=== PATIENT | female | born 1940 | race Caucasian/White ===

== ENCOUNTER → 2017-08-31 17:29 | Outpatient (CLI) | payer MEDICARE, SELFPAY ==
[2017-09-08 10:52] LABS: HPV APTIMA, High Risk Negative (Negative)
== END ==
PROVIDERS: Family Provider Family Medicine; PCP Family Medicine; Visit Provider Obstetrics & Gynecology
DX: Z12.4 Encounter for screening for malignant neoplasm of cervix (principal)
CPT/HCPCS: 88175; G0145

== ENCOUNTER → 2017-10-13 08:06 | Outpatient (CLI) | payer MEDICARE, SELFPAY ==
--- NOTE | 2017-10-13 08:08 | BI_ITS ---
MAMMOGRAPHY - BILATERAL SCREENING REASON FOR EXAM: Female, 77 years old. Routine annual screening examination. PERTINENT HISTORY: Non-contributory. TECHNIQUE: Digital bilateral breast geovanna (3D mammographic acquisition) in the CC and MLO projections. 2-D mediolateral oblique (MLO) and craniocaudad (CC) views of both breasts were obtained. CAD: Full Field Digital Mammography with Computer Added Detection was performed. COMPARISON: Comparison is made with prior abdomen examination dated September 02, 2016. FINDINGS: Breast Composition: The breasts are almost entirely fatty. There are no dominant masses or suspicious calcifications. No other significant abnormalities are identified. There has been no significant change since the prior study. BI/SCREENING MAMM (CAD), BILAT IMPRESSION: Stable bilateral screening mammogram. Yearly follow-up mammogram recommended. (A) ASSESSMENT CATEGORY: BIRADS Category 1: Negative. A letter regarding these results will be sent to the patient by the facility within 30 days. Approximately 10% of breast cancers are not detected by mammography. A normal mammogram should not delay biopsy of a clinically suspicious abnormality. [id number] Electronically Signed: Priyank Lindsay MD at 11:24 EDT Tel [phone], Service support ,
== END ==
PROVIDERS: Family Provider Family Medicine; PCP Family Medicine; Visit Provider Obstetrics & Gynecology
DX: Z12.31 Encounter for screening mammogram for malignant neoplasm of breast (principal)
CPT/HCPCS: 77063; 77067

== ENCOUNTER → 2018-03-23 10:38 | Outpatient (CLI) | payer MEDICARE, SELFPAY ==
[2017-08-31 09:29] VITALS: BMI 32.8
[2018-03-23 11:42] LABS: Estradiol < 11.0 pg/mL; Follicle Stimulating Hormone 85.9 mIU/mL
[2018-03-27 11:34] LABS: Testosterone Free 2.5 pg/mL (0.0-4.2)
--- OUTSIDE RECORDS SUMMARY | 2018-05-09 05:37 | XMS RPT_ITS ---
:1940 Author Organization OHIP Care Team Providers Name Role Phone PARRISH, LEÓN Referring Unavailable MISBAH TOMAS ([facility]) Referring Unavailable BETTIE CARLSON R Referring Unavailable PARRISH, LEÓN Referring Unavailable MISBAH TOMAS ([facility]) Referring Unavailable PARRISH, LEÓN Attending Unavailable PARRISH, LEÓN Referring Unavailable PARRISH, LEÓN Referring Unavailable MISBAH TOMAS ([facility]) Referring Unavailable BETTIE CARLSON R Attending Unavailable MISBAH TOMAS ([facility]) Referring Unavailable PARRISH, LEÓN Referring Unavailable PARRISH, LEÓN Attending Unavailable MISBAH TOMAS ([facility]) Referring Unavailable PARRISH, LEÓN Referring Unavailable PARRISH, LEÓN Referring Unavailable BETTIE CARLSON R Referring Unavailable PARRISH, LEÓN Referring Unavailable Savanna Mclean Attending Unavailable Savanna Mclean Referring Unavailable Deanna Carlson Primary Care Unavailable Savanna Mclean Attending Unavailable Joaquin Whiting Referring Unavailable Savanna Mclean Attending Unavailable Savanna Mclean Referring Unavailable Deanna Carlson Primary Care Unavailable Savanna Mclean Attending Unavailable Deanna Carlson Primary Care Unavailable Cierra Fisher Attending Unavailable PROBLEMS PROBLEMS DATE TYPE CONDITION / CODE ATTENDING STATUS SOURCE 01/21/2016 Active Mixed hyperlipidemia NA Active [place] / E78.2(ICD-10) Clinic Main [place] Repository 01/21/2016 Active Hypothyroidism, NA Active [place] unspecified / Clinic Main E03.9(ICD-10) [place] Repository 09/01/2017 Unknown Z12.4 - Encounter Caridad, Active [place] for screening for [facility] malignant neoplasm Hospital of cervix / Repository Z12.4(ICD-10) 08/31/2017 Unknown Z12.31 - Encounter Caridad, Active [place] for screening [facility] mammogram for Hospital malignant neoplasm Repository of breast / Z12.31(ICD-10) 08/31/2017 Unknown Z91.89 - Other Marcanthony, Active [place] specified personal [facility] risk factors, not Hospital elsewhere classified Repository / Z91.89(ICD-10) 07/13/2016 Active Ulcerative (chronic) NA Active [place] pancolitis without Clinic Main complications / [place] K51.00(ICD-10) Repository 08/01/2017 Active Other halfway NA Active [place] (current) drug Clinic Main therapy / [place] Z79.899(ICD-10) Repository 08/01/2017 Active Encounter for NA Active [place] antibody response Clinic Main examination / [place] Z01.84(ICD-10) Repository 11/03/2015 Active Encounter for other NA Active [place] specified Clinic Main prophylactic [place] measures / Repository Z29.8(ICD-10) 05/17/2017 Active Unknown / NA Active [place] UNK(Unknown) Clinic Main [place] Repository PROCEDURES PROCEDURES No Procedure Records FoundRESULTS RESULTS LIPID PANEL, BASIC Collected: 04/10/2018 Status: F Source: [place] 7:33 AM [facility] REPOSITORY TYPE CODE TESTS RESULT OUT OF REFERENCE UNITS RANGE LAB CHOL <200 mg/dL Cholesterol High 243 Result Comment: <200 mg/dL, Desirable 200-239 mg/dL, Borderline high >239 mg/dL, High LAB TRIGLY <150 mg/dL Triglyceride 142 Result Comment: <150 mg/dL, Normal 150-199 mg/dL, Borderline high 200-499 mg/dL, High >499 mg/dL, Very high LAB HDL >39 mg/dL HDL-Cholesterol 57 Result Comment: 40-59 mg/dL, Acceptable >59 mg/dL, High: Negative risk factor for coronary heart disease <40 mg/dL, Low: Positive risk factor for coronary heart disease LAB LDL <100 mg/dL LDL-Cholesterol High 158 Result Comment: <100 mg/dL, Optimal 100-129 mg/dL, Near optimal/above optimal 130-159 mg/dL, Borderline high 160-189 mg/dL, High >189 mg/dL, Very high Secondary prevention optimal LDL Cholesterol levels are recommended to be < 70 mg/dL LAB NONHDL <130 mg/dL Non HDL High Cholesterol 186 Result Comment: <130 mg/dL, Optimal 130-159 mg/dL, Near optimal/above optimal 160-189 mg/dL, Borderline high 190-219 mg/dL, High >219 mg/dL, Very high Secondary prevention optimal non HDL Cholesterol levels are recommended to be < 100 mg/dL LAB FT hrs Fasting Time 12 LAB VLDL <30 mg/dL VLDL Cholesterol 28 LAB TCHDL <5.10 TC:HDL Ratio 4.26 LAB LDLHDL <2.54 High LDL:HDL Ratio 2.77 Result Comment: Reference: 1. National Cholesterol Education Program ATP III Guideline At-A-Glance Quick Desk Reference: National Heart, Lung, and Blood Margaret. National Institutes of Health. 2001: NIH Publication No. 01-3305. 2. An International Atherosclerosis Society position paper: global recommendations for the management of dyslipidemia: executive summary, Atherosclerosis. 2014: 232(2):410-413. Performed By: #### LIPB, TSH #### [facility] [address], [place] [address] TSH Collected: 04/10/2018 Status: F Source: [place] 7:33 AM [facility] REPOSITORY TYPE CODE TESTS RESULT OUT OF RANGE REFERENCE UNITS LAB TSH 0.400-5.500 uU/mL TSH 2.780 Performed By: #### LIPB, TSH #### [facility] [address], [place] [address] FOLLICLE STIMULATING Collected: 03/23/2018 Status: F Source: [place] 10:49 AM [facility] REPOSITORY TYPE CODE TESTS RESULT OUT OF RANGE REFERENCE UNITS LAB L3100.5125 mIU/mL Normal FSH 85.9 Result Comment: NORMAL REFERENCE RANGES FEMALE FOLLICULAR 2.3 - 12.6 mIU/mL MID-CYCLE PEAK 5.2 - 17.5 mIU/mL LUTEAL 1.7 - 12.9 mIU/mL POST-MENOPAUSAL ON MHT 5.9 - 72.8 mIU/mL NOT ON MHT 12.7 - 132.2 mlU/mL MALE 0.7 - 10.8 mIU/mL NEW TEST METHOD AND REFERENCE RANGES AUGUST 30, 2011 Performed By: #### L3100.5125, L3300.1750 #### [facility] [address] [place], [address] ESTRADIOL Collected: 03/23/2018 Status: F Source: [place] 10:49 AM [facility] REPOSITORY TYPE CODE TESTS RESULT OUT OF RANGE REFERENCE UNITS LAB L3300.1750 pg/mL Normal ESTRADIOL < 11.0 Result Comment: NORMAL REFERENCE RANGES FEMALE FOLLICULAR 21.4 - 164.8 pg/mL MID-CYCLE PEAK 49.9 - 367.2 pg/mL LUTEAL 40.2 - 259.0 pg/mL POST-MENOPAUSAL ON MHT <11.0 - 462.1 pg/mL NOT ON MHT <11.0 - 58.3 pg/mL MALE <11.0 - 52.5 pg/mL NOTE: [facility] HAS CONFIRMED THE DRUG FULVETRANT (FASLODEX) MAY CAUSE FALSELY ELEVATED ESTRADIOL RESULTS WHEN USING THIS TEST METHOD. IF PATIENT IS TAKING FULVESTRANT AN ALTERNATIVE METHOD SHOULD BE USED TO DETERMINE ESTRADIOL CONCENTRATION. Performed By: #### L3100.5125, L3300.1750 #### [facility] [address] [place], [address] TESTOSTERONE FREE Collected: 03/23/2018 Status: F Source: [place] 10:49 AM [facility] REPOSITORY TYPE CODE TESTS RESULT OUT OF RANGE REFERENCE UNITS LAB L3400.4800 0.0-4.2 pg/mL Normal TEST FR 2.5 [id number] Result Comment: Performed at: [facility] [id number] Medical Dosimetrist: Pio Dumont MD, Phone: [phone] Performed By: #### L3400.4800 #### [facility] (refer to report for specific site) refer to report for address and phone number SURGICAL PATHOLOGY Observed: 11/10/2017 Status: F Source: [place] 4:59 PM CLINIC MAIN CAMPUS REPOSITORY Specimen originated from [facility] Specimen #: [id number] Submitting Physician: LEÓN PARRISH ([id number]) FINAL DIAGNOSIS Colon, ascending, transverse, descending, sigmoid, rectum, biopsy (A-E) - Colonic mucosa with no diagnostic alteration. - No morphologic evidence of microscopic colitis. SR/paras/11/11/17 Oscar Palomo MD, Ph.D. (Electronic Signature) SPECIMEN SUBMITTED A: ASCENDING COLON, BIOPSY B: TRANSVERSE COLON, BIOPSY C: DESCENDING COLON, BIOPSY D: SIGMOID COLON, BIOPSY E: RECTAL, BIOPSY CLINICAL DATA COLITIS R/O COLITIS FOR ALL BELOW GROSS DESCRIPTION A. Received in formalin are two pieces of jacinto, soft tissue aggregating to 0.7 x 0.2 x 0.2 cm. Totally submitted in one cassette. B. Received in formalin are three pieces of jacinto, soft tissue aggregating to 1.0 x 0.4 x 0.2 cm. Totally submitted in one cassette. C. Received in formalin are two pieces of jacinto, soft tissue aggregating to 0.8 x 0.2 x 0.2 cm. Totally submitted in one cassette. D. Received in formalin are two pieces of jacinto, soft tissue aggregating to 0.8 x 0.2 x 0.2 cm. Totally submitted in one cassette. E. Received in formalin are two pieces of jacinto, soft tissue aggregating to 0.6 x 0.2 x 0.2 cm. Totally submitted in one cassette. Gross examination performed at [facility], [address] [place] [id number] 11/10/2017 11:40:49 PM Date of Report: 11/11/2017 Date of Procedure: 11/10/2017 Date of Receipt: 11/10/2017 Submitted by: LEÓN PARRISH ([id number]) Location: [facility] MAIN [facility] A3 Diagnostic interpretation performed at [facility], [address] [place] [address]. URINALYSIS WITH Collected: 10/25/2017 Status: F Source: [facility] 11:28 AM [facility] REPOSITORY TYPE CODE TESTS RESULT OUT OF RANGE REFERENCE UNITS LAB UCOL Yellow Color Yellow LAB [facility] Clear Clarity Clear LAB UGLUC Negative mg/dL Glucose, Urine Negative LAB UBIL Negative Bilirubin, Urine Negative LAB UKET Negative Ketones, Urine Negative LAB USPG 1.005-1.030 Specific [place], Ur 1.009 LAB UHGB Negative Hemoglobin/Blood, Negative Ur LAB UPH 4.5-8.0 pH 6.0 LAB UPROT Negative mg/dL Protein, Urine Negative LAB UUROB Normal Urobilinogen Normal LAB UNITR Negative Nitrites Negative LAB ULKEST Negative Leukest Abnormal 2+ Alert LAB UCOM Comments SEE COMMENT Result Comment: N/A LAB UMCOM Urine SEE Nate Comment COMMENT Result Comment: Result rechecked. LAB UWBC 0-5 /HPF WBC 0-5 LAB URBC 0-3 /HPF RBC 0-3 LAB UEPI /HPF Epithelial SEE Cells COMMENT Result Comment: Few Squamous Epithelial Cells Performed By: #### UAWMIC #### [place] [address] PROGRESS Observed: 10/17/2017 Status: COMPLETED Source: [place] 9:44 AM [facility] REPOSITORY HNO ID: [id number] Author: Bettie Carlson Service: (none) Author Type: Physician Type: Progress Notes Filed: 10/18/2017 8:15 AM Note Text: Chief Complaint Patient presents with: Follow Up: UTI HPI Isaiah Shea is a 77 year old female who presents here today for follow-up of recent UTI. she had blood in the urine and the culture was negative. Past medical history, appointments, medications, allergies reviewed. 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 - Bowel disease - Diarrhea - Diverticulosis of colon (without mention of hemorrhage) - Esophageal reflux - Hypertension - Obesity, unspecified - Other and unspecified hyperlipidemia - Other and unspecified noninfectious gastroenteritis and colitis(558.9) - Rosacea - Thyroid disorder - Ulcerative colitis (HCC) - Unspecified disorder resulting from impaired renal function Previous Surgical History PAST SURGICAL HISTORY Procedure Laterality Date - COLONOSCOP W/ OR W/O BRS SPEC 05/17/05 attempted colonoscopy BA Enema for 05-18-05 - COLONOSCOP W/ OR W/O [facility] SPEC 07/08/11 Performed by León Parrish MD - COLONOSCOPY W/BX 09/21/07 - COLONOSCOPY W/BX colitis - 70cm to rectum - COLONOSCOPY W/BX 07/03/09 colitis rectum to 40cm - EGD W/O [facility] SPECIMEN W/BX gastritis - LAP COLECTOMY W COLOPROCTOST 10/23/2007 - LIGATE FALLOPIAN TUBE Tubal ligation - PART REMOVAL COLON W END COLOSTOMY 06/28/2007 complicated diverticulitis' - PAST SURGICAL HISTORY OF neuro - REMOVAL OF TONSILS,<12 Y/O Tonsillectomy Family History FAMILY HISTORY Problem Relation Age of Onset - Heart Mother - Heart Father - Cancer Mother lung Patient Allergies ALLERGIES Allergen Reactions - Neomycin Optic drops grittiness in eyes per opthomologist - Sulfasalazine Rash Current Medications Current Outpatient Prescriptions on File Prior to Visit: triamcinolone acetonide (KENALOG) 0.1 % cream Apply 1 application to affected area twice daily. cyanocobalamin, vitamin B-12, (VITAMIN B-12 ORAL) Take by mouth once daily. mesalamine (DELZICOL) 400 mg Delayed Release Cap Take 2 capsules by mouth three times daily. Denies side effects to this medication inFLIXimab (REMICADE) 100 mg injection PREMEDICATE WITH TYLENOL 650 MG PO AND BENADRYL 25MG PO 400 mg IV every 8 wks. Most recent weight on 01-02-2017 was 87.5 kg levothyroxine (SYNTHROID) 100 mcg tablet Take 1 tablet by mouth once daily. lisinopril-hydrochlorothiazide (PRINZIDE,ZESTORETIC) 20-12.5 mg per tablet Take 1 tablet by mouth once daily. omeprazole (PRILOSEC) 20 mg capsule Take 1 capsule by mouth daily before breakfast. 1/2 hr before meal. simvastatin (ZOCOR) 20 mg tablet Take 1 tablet by mouth daily at bedtime. Blood Pressure Test Kit-Large (QUICK RESPONSE BP MONITOR) kit Check blood pressure weekly and as needed. Essential hypertension--I10. oxybutynin ER (DITROPAN XL) 10 mg 24 hr tablet TAKE 1 TABLET DAILY inFLIXimab (REMICADE) 100 mg injection PREMEDICATE WITH TYLENOL 650 MG PO AND BENADRYL 25MG PO 500mg IV every 8 wks. Infusion can be done at [facility] [place] Cholecalciferol, Vitamin D3, 2,000 unit cap Take 1 tablet by mouth once daily. multivitamins(DAILY VITAMIN TAB) Take one(1) tablet daily. ACETAMINOPHEN 500 MG TAB Take one(1) tablet every four(4) to six(6) hours as needed for pain. azelaic acid(FINACEA 15 % TOPICAL GEL) am/hs OTC NUTRITIONAL SUPPLEMENT calcium qd No current facility-administered medications on file prior to visit. Social History Social History Marital status: Spouse name: Britney Years of education: 18+ Number of children: 2 Occupational History Occupation Employer Comment retired [employer] Social History Main Topics Smoking status: Former Smoker Packs/day: 1.00 Years: 15.00 Types: Cigarettes Quit date: 12/17/1984 Smokeless tobacco: Never Used Alcohol use: Yes 3.0 oz/week Glasses of Wine (5oz): 2 per week Comment: 1-2 per week Drug use: No Sexual activity: Yes Partners with: Male control/protection: Tubal Ligation Social History Narrative [place] 3x per week. Cardio, strength. ROS: General: Feels well, no weight changes, fever, chills. HEENT: No sinus congestion, earache, sore throat. Cardiac: No chest pain, palpitations, shortness of breath Resp: No cough, wheeze. GI: No reflux symptoms, food intolerance, bowel changes. : No current urinary frequency, dysuria. MS: No pain or joint complaints. PHYSICAL EXAMINATION BP 139/53 (BP Site: Left Arm, BP Position: Sitting) Pulse 68 Resp 12 Wt 91.9 kg (202 lb 9.6 oz) BMI 32.70 kg/m? General: Alert and oriented, no distress, pleasant and cooperative. Heart: Regular, normal S1 and S2, no murmurs, rubs, or gallops Lungs: Clear to auscultation bilaterally Abdomen: Benign No CVAT Extremities: Feet/ankles without edema, posterior tibial pulses full and symmetrical Health Maintenance List ZOSTER VACCINE (SHINGRIX)(2 of 3) due on 09/30/2008 COLORECTAL CANCER SCREENING,SEE MODIFIER due on 08/18/2017 DTAP,TDAP,TD(2 - Td) due on 12/11/2017 DIABETES SCREEN due on 08/01/2020 LIPID SCREEN due on 02/17/2022 BONE DENSITY Completed ADULT PREVNAR-13 Completed PNEUMOVAX AGE 65 AND OVER WITH 5YR LOOKBACK Completed Data reviewed Last lipid and TSH February. Kidney, liver function and glucose are normal. Blood count is normal. Assessment/Plan: (R31.29) Microscopic hematuria (primary encounter diagnosis) Comment: Plan: URINALYSIS WITH MICROSCOPIC (N30.80) Bacterial cystitis Comment: culture has not been confirmatory Plan: URINALYSIS WITH MICROSCOPIC, may proceed with urology consult (E03.9) Acquired hypothyroidism Comment: stable Plan: TSH BLD Ordered for February. (E78.2) Mixed hyperlipidemia Comment: Plan: LIPID PANEL BASIC Ordered For February. She gets CMP and CBC quarterly No medications selected for refill. RTO: annual visit OK if the UA turns out alright, urol eval if persistent hematuria Bettie Carlson MD CNOV Observed: 10/17/2017 Status: COMPLETED Source: [place] 9:40 AM [facility] REPOSITORY Office Visit (FPWADS) ISAIAH SHEA ([id number]) 1940 F [place] Date Time Provider Department 10/17/17 9:40 AM BETTIE CARLSON During your visit today, we recorded the following information about you: Pulse Respiration Blood pressure Weight 68/minute 12/minute 139/53 91.9 kg Bettie Carlson MD 10/18/2017 8:15 AM Signed Chief Complaint Patient presents with: Follow Up: UTI HPI Isaiah Shea is a 77 year old female who presents here today for follow-up of recent UTI. she had blood in the urine and the culture was negative. Past medical history, appointments, medications, allergies reviewed. 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 - Bowel disease - Diarrhea - Diverticulosis of colon (without mention of hemorrhage) - Esophageal reflux - Hypertension - Obesity, unspecified - Other and unspecified hyperlipidemia - Other and unspecified noninfectious gastroenteritis and colitis(558.9) - Rosacea - Thyroid disorder - Ulcerative colitis (HCC) - Unspecified disorder resulting from impaired renal function Previous Surgical History PAST SURGICAL HISTORY Procedure Laterality Date - COLONOSCOP W/ OR W/O BRS SPEC 05/17/05 attempted colonoscopy BA Enema for 05-18-05 - COLONOSCOP W/ OR W/O [facility] SPEC 07/08/11 Performed by León Parrish MD - COLONOSCOPY W/BX 09/21/07 - COLONOSCOPY W/BX colitis - 70cm to rectum - COLONOSCOPY W/BX 07/03/09 colitis rectum to 40cm - EGD W/O [facility] SPECIMEN W/BX gastritis - LAP COLECTOMY W COLOPROCTOST 10/23/2007 - LIGATE FALLOPIAN TUBE Tubal ligation - PART REMOVAL COLON W END COLOSTOMY 06/28/2007 complicated diverticulitis' - PAST SURGICAL HISTORY OF neuro - REMOVAL OF TONSILS,<12 Y/O Tonsillectomy Family History FAMILY HISTORY Problem Relation Age of Onset - Heart Mother - Heart Father - Cancer Mother lung Patient Allergies ALLERGIES Allergen Reactions - Neomycin Optic drops grittiness in eyes per opthomologist - Sulfasalazine Rash Current Medications Current Outpatient Prescriptions on File Prior to Visit: triamcinolone acetonide (KENALOG) 0.1 % cream Apply 1 application to affected area twice daily. cyanocobalamin, vitamin B-12, (VITAMIN B-12 ORAL) Take by mouth once daily. mesalamine (DELZICOL) 400 mg Delayed Release Cap Take 2 capsules by mouth three times daily. Denies side effects to this medication inFLIXimab (REMICADE) 100 mg injection PREMEDICATE WITH TYLENOL 650 MG PO AND BENADRYL 25MG PO 400 mg IV every 8 wks. Most recent weight on 01-02-2017 was 87.5 kg levothyroxine (SYNTHROID) 100 mcg tablet Take 1 tablet by mouth once daily. lisinopril-hydrochlorothiazide (PRINZIDE,ZESTORETIC) 20-12.5 mg per tablet Take 1 tablet by mouth once daily. omeprazole (PRILOSEC) 20 mg capsule Take 1 capsule by mouth daily before breakfast. 1/2 hr before meal. simvastatin (ZOCOR) 20 mg tablet Take 1 tablet by mouth daily at bedtime. Blood Pressure Test Kit-Large (QUICK RESPONSE BP MONITOR) kit Check blood pressure weekly and as needed. Essential hypertension--I10. oxybutynin ER (DITROPAN XL) 10 mg 24 hr tablet TAKE 1 TABLET DAILY inFLIXimab (REMICADE) 100 mg injection PREMEDICATE WITH TYLENOL 650 MG PO AND BENADRYL 25MG PO 500mg IV every 8 wks. Infusion can be done at [facility] [place] Cholecalciferol, Vitamin D3, 2,000 unit cap Take 1 tablet by mouth once daily. multivitamins(DAILY VITAMIN TAB) Take one(1) tablet daily. ACETAMINOPHEN 500 MG TAB Take one(1) tablet every four(4) to six(6) hours as needed for pain. azelaic acid(FINACEA 15 % TOPICAL GEL) am/hs OTC NUTRITIONAL SUPPLEMENT calcium qd No current facility-administered medications on file prior to visit. Social History Social History Marital status: Spouse name: Britney Years of education: 18+ Number of children: 2 Occupational History Occupation Employer Comment retired [employer] Social History Main Topics Smoking status: Former Smoker Packs/day: 1.00 Years: 15.00 Types: Cigarettes Quit date: 12/17/1984 Smokeless tobacco: Never Used Alcohol use: Yes 3.0 oz/week Glasses of Wine (5oz): 2 per week Comment: 1-2 per week Drug use: No Sexual activity: Yes Partners with: Male control/protection: Tubal Ligation Social History Narrative [place] 3x per week. Cardio, strength. ROS: General: Feels well, no weight changes, fever, chills. HEENT: No sinus congestion, earache, sore throat. Cardiac: No chest pain, palpitations, shortness of breath Resp: No cough, wheeze. GI: No reflux symptoms, food intolerance, bowel changes. : No current urinary frequency, dysuria. MS: No pain or joint complaints. PHYSICAL EXAMINATION BP 139/53 (BP Site: Left Arm, BP Position: Sitting) Pulse 68 Resp 12 Wt 91.9 kg (202 lb 9.6 oz) BMI 32.70 kg/m? General: Alert and oriented, no distress, pleasant and cooperative. Heart: Regular, normal S1 and S2, no murmurs, rubs, or gallops Lungs: Clear to auscultation bilaterally Abdomen: Benign No CVAT Extremities: Feet/ankles without edema, posterior tibial pulses full and symmetrical Health Maintenance List ZOSTER VACCINE (SHINGRIX)(2 of 3) due on 09/30/2008 COLORECTAL CANCER SCREENING,SEE MODIFIER due on 08/18/2017 DTAP,TDAP,TD(2 - Td) due on 12/11/2017 DIABETES SCREEN due on 08/01/2020 LIPID SCREEN due on 02/17/2022 BONE DENSITY Completed ADULT PREVNAR-13 Completed PNEUMOVAX AGE 65 AND OVER WITH 5YR LOOKBACK Completed Data reviewed Last lipid and TSH February. Kidney, liver function and glucose are normal. Blood count is normal. Assessment/Plan: (R31.29) Microscopic hematuria (primary encounter diagnosis) Comment: Plan: URINALYSIS WITH MICROSCOPIC (N30.80) Bacterial cystitis Comment: culture has not been confirmatory Plan: URINALYSIS WITH MICROSCOPIC, may proceed with urology consult (E03.9) Acquired hypothyroidism Comment: stable Plan: TSH BLD Ordered for February. (E78.2) Mixed hyperlipidemia Comment: Plan: LIPID PANEL BASIC Ordered For February. She gets CMP and CBC quarterly No medications selected for refill. RTO: annual visit OK if the UA turns out alright, urol eval if persistent hematuria Bettie Carlson MD Referring Provider: SELF [[id number]] Allergies As of Date: 10/17/2017 Noted Allergy Reaction NEOMYCIN 12/12/2007 Comments: Optic drops grittiness in eyes per opthomologist SULFASALAZINE 01/08/2011 2 - Rash Date Reviewed: 10/17/2017 Reviewed by: Imleda Plummer Ma - Fully Assessed Reason for Visit: Follow Up [171] Cmt: UTI Primary Visit Diagnosis:Microscopic hematuria [R31.29] Other Visit Diagnoses:Bacterial cystitis [N30.80] Acquired hypothyroidism [E03.9] Mixed hyperlipidemia [E78.2] Order(s):LIPID PANEL BASIC [SQLIPB] Order #: [id number] FUTURE TSH BLD [SQTSH] Order #: [id number] FUTURE URINALYSIS WITH MICROSCOPIC [SQUAWMIC] Order #: [id number] Prescriptions as of 10/17/2017 Sig: TRIAMCINOLONE ACETONIDE 0.1 %* Apply 1 application to affect* VITAMIN B-12 ORAL Take by mouth once daily. MESALAMINE 400 MG CAPSULE,DEL* Take 2 capsules by mouth thre* INFLIXIMAB 100 MG INTRAVENOUS* PREMEDICATE WITH TYLENOL 650* LEVOTHYROXINE 100 MCG TABLET Take 1 tablet by mouth once d* LISINOPRIL 20 MG-HYDROCHLOROT* Take 1 tablet by mouth once d* OMEPRAZOLE 20 MG CAPSULE,BIANKA* Take 1 capsule by mouth daily* SIMVASTATIN 20 MG TABLET Take 1 tablet by mouth daily * BLOOD PRESSURE TEST KIT-LARGE* Check blood pressure weekly a* OXYBUTYNIN CHLORIDE ER 10 MG * TAKE 1 TABLET DAILY INFLIXIMAB 100 MG INTRAVENOUS* PREMEDICATE WITH TYLENOL 650* CHOLECALCIFEROL (VITAMIN D3) * Take 1 tablet by mouth once d* DAILY VITAMIN TABLET Take one(1) tablet daily. ACETAMINOPHEN 500 MG TABLET Take one(1) tablet every four* FINACEA 15 % TOPICAL GEL am/hs OTC NUTRITIONAL SUPPLEMENT calcium qd Problem List As Of Date 10/17/2017 Noted Resolved ROSACEA [L71.9] OBESITY NOS [E66.9] Mixed hyperlipidemia [E78.2] Priority: B BENIGN HYPERTENSION [I10] 08/03/2007 DIVERTICULOSIS OF COLON W/O BLEED [K57.30] NONHEALING SURGICAL WOUND [T81.89XA] INVALID FOR*12/12/2007 DIVERTICULITIS OF COLON W/O BLEED [K57.32] INVALID FOR*12/12/2007 More... Acquired hypothyroidism [E03.9] INVALID FOR* Priority: A Anemia, unspecified [D64.9] INVALID FOR* Priority: B DIVERTICULITIS OF COLON W/O BLEED [K57.32] INVALID FOR* Elevated blood pressure reading without diagnos*INVALID FOR*10/07/2011 Diarrhea [R19.7] INVALID FOR* Gastritis/duodenitis [K29.70, K29.90] INVALID FOR* Other and unspecified noninfectious gastroenter*INVALID FOR* Acute gastritis without mention of hemorrhage [*INVALID FOR* Unspecified disorder resulting from impaired re*INVALID FOR* Priority: A Esophageal reflux [K21.9] INVALID FOR* Priority: C Nonspecific colitis [K52.9] INVALID FOR* Priority: Moderate More... Anemia due to blood loss [D50.0] INVALID FOR* Routine gynecological examination [Z01.419] INVALID FOR* Priority: B Class: Chronic More... 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) [M07.60*INVALID FOR* Need for prophylactic immunotherapy [Z29.8] INVALID FOR* Ulcerative pancolitis without complication (HCC*INVALID FOR* Encounter Status:Closed by DEANNA CARLSON MD on 10/18/17 URINALYSIS WITH Collected: 10/13/2017 Status: F Source: [facility] 9:11 AM [facility] REPOSITORY TYPE CODE TESTS RESULT OUT OF RANGE REFERENCE UNITS LAB UCOL Yellow Color Yellow LAB [facility] Clear Clarity Abnormal Cloudy Alert LAB UGLUC Negative mg/dL Glucose, Urine Negative LAB UBIL Negative Bilirubin, Urine Negative LAB UKET Negative Ketones, Urine Negative LAB USPG 1.005-1.030 Specific [place], Ur 1.008 LAB UHGB Negative Hemoglobin/Blood, Negative Ur LAB UPH 4.5-8.0 pH 6.0 LAB UPROT Negative mg/dL Protein, Urine Negative LAB UUROB Normal Urobilinogen Normal LAB UNITR Negative Nitrites Negative LAB ULKEST Negative Leukest Abnormal Trace Alert LAB UCOM Comments SEE COMMENT Result Comment: N/A LAB UMCOM Urine SEE Nate Comment COMMENT Result Comment: N/A LAB UWBC 0-5 /HPF WBC 0-5 LAB URBC 0-3 /HPF RBC 0-3 LAB UEPI /HPF Epithelial SEE Cells COMMENT Result Comment: Few Squamous Epithelial Cells Few Non-Squamous Epithelial Cells Performed By: #### UAWMIC #### [facility] [address] [place], [place] [address] SCREENING MAMM (CAD), Observed: 10/13/2017 Status: F Source: [place] [facility] 8:08 AM [facility] REPOSITORY [facility] Imaging Services [address] [place] [address] SCREENING MAMM (CAD), BILAT MR#: [id number] Acct: [id number] Name: ISAIAH SHEA Rep #: [id number] : 1940 F 77 From: Priyank Lindsay MD PCP: Deanna Carlson MD Status: REG CLI Study: SCREENING MAMM (CAD), BILAT Date of Exam: 10/13/17 Exam# [id number] Ordering Dr: Savanna Mclean MD MAMMOGRAPHY - BILATERAL SCREENING REASON FOR EXAM: Female, 77 years old. Routine annual screening examination. PERTINENT HISTORY: Non-contributory. TECHNIQUE: Digital bilateral breast geovanna (3D mammographic acquisition) in the CC and MLO projections. 2-D mediolateral oblique (MLO) and craniocaudad (CC) views of both breasts were obtained. CAD: Full Field Digital Mammography with Computer Added Detection was performed. COMPARISON: Comparison is made with prior abdomen examination dated September 02, 2016. FINDINGS: Breast Composition: The breasts are almost entirely fatty. There are no dominant masses or suspicious calcifications. No other significant abnormalities are identified. There has been no significant change since the prior study. BI/SCREENING MAMM (CAD), BILAT IMPRESSION: Stable bilateral screening mammogram. Yearly follow-up mammogram recommended. (A) ASSESSMENT CATEGORY: BIRADS Category 1: Negative. A letter regarding these results will be sent to the patient by the facility within 30 days. Approximately 10% of breast cancers are not detected by mammography. A normal mammogram should not delay biopsy of a clinically suspicious abnormality. [id number] Electronically Signed: Priyank Lindsay MD at 11:24 EDT Tel [phone], Service support , CC: Deanna Carlson MD; Savanna Mclean MD Estimator Printing: Signed Observed: 09/07/2017 Status: F Source: [place] URINE CULTURE 10:21 AM [facility] REPOSITORY Sp. Request/Comment: - Specimen received in preservative Culture Result - <10,000 CFU/ml Normal urogenital jarrell Performed By: #### URCUL #### [facility] [address] [place], [place] [address] PROGRESS Observed: 09/07/2017 Status: COMPLETED Source: [place] 10:16 AM [facility] REPOSITORY HNO ID: [id number] Author: Forrest (Christian) Leander Service: (none) Author Type: Nurse Practitioner Type: Progress Notes Filed: 09/07/2017 10:29 AM Note Text: Subjective HPI Isaiah Shea is a 77 year old female who presents with dysuria, frequency, and urgency for the past 4 days. She has been taking prednisone for a poison rosenda rash which is resolving. She denies back pain or abdominal pain. No fever at home. Review of Systems Constitutional: Negative. Negative for chills and fever. Gastrointestinal: Negative. Negative for abdominal pain, diarrhea, nausea and vomiting. Genitourinary: Positive for dysuria, frequency and urgency. Negative for flank pain and hematuria. Musculoskeletal: Negative. Negative for back pain. BP 130/90 Pulse 62 Temp 36.7 ?C (98 ?F) (Left Tympanic) Resp 16 Wt 90.3 kg (199 lb) BMI 32.12 kg/m? 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 - Bowel disease - Diarrhea - Diverticulosis of colon (without mention of hemorrhage) - Esophageal reflux - Hypertension - Obesity, unspecified - Other and unspecified hyperlipidemia - Other and unspecified noninfectious gastroenteritis and colitis(558.9) - Rosacea - Thyroid disorder - Ulcerative colitis (HCC) - Unspecified disorder resulting from impaired renal function PAST SURGICAL HISTORY Procedure Laterality Date - COLONOSCOP W/ OR W/O BRSH SPEC 05/17/05 attempted colonoscopy BA Enema for 05-18-05 - COLONOSCOP W/ OR W/O BRSH SPEC 07/08/11 Performed by León Parrish MD - COLONOSCOPY W/BX 09/21/07 - COLONOSCOPY W/BX colitis - 70cm to rectum - COLONOSCOPY W/BX 07/03/09 colitis rectum to 40cm - EGD W/O [facility] SPECIMEN W/BX gastritis - LAP COLECTOMY W COLOPROCTOST 10/23/2007 - LIGATE FALLOPIAN TUBE Tubal ligation - PART REMOVAL COLON W END COLOSTOMY 06/28/2007 complicated diverticulitis' - PAST SURGICAL HISTORY OF neuro - REMOVAL OF TONSILS,<12 Y/O Tonsillectomy ALLERGIES Neomycin; Sulfasalazine MEDICATIONS predniSONE (DELTASONE) 10 mg tablet Take 4 tabs daily for 3 days, then 2 tabs daily for 3 days, then 1 tab daily for 3 days with food. triamcinolone acetonide (KENALOG) 0.1 % cream Apply 1 application to affected area twice daily. cyanocobalamin, vitamin B-12, (VITAMIN B-12 ORAL) Take by mouth once daily. mesalamine (DELZICOL) 400 mg Delayed Release Cap Take 2 capsules by mouth three times daily. Denies side effects to this medication inFLIXimab (REMICADE) 100 mg injection PREMEDICATE WITH TYLENOL 650 MG PO AND BENADRYL 25MG PO 400 mg IV every 8 wks. Most recent weight on 01-02-2017 was 87.5 kg levothyroxine (SYNTHROID) 100 mcg tablet Take 1 tablet by mouth once daily. lisinopril-hydrochlorothiazide (PRINZIDE,ZESTORETIC) 20-12.5 mg per tablet Take 1 tablet by mouth once daily. omeprazole (PRILOSEC) 20 mg capsule Take 1 capsule by mouth daily before breakfast. 1/2 hr before meal. simvastatin (ZOCOR) 20 mg tablet Take 1 tablet by mouth daily at bedtime. Blood Pressure Test Kit-Large (QUICK RESPONSE BP MONITOR) kit Check blood pressure weekly and as needed. Essential hypertension--I10. oxybutynin ER (DITROPAN XL) 10 mg 24 hr tablet TAKE 1 TABLET DAILY inFLIXimab (REMICADE) 100 mg injection PREMEDICATE WITH TYLENOL 650 MG PO AND BENADRYL 25MG PO 500mg IV every 8 wks. Infusion can be done at [facility] [place] Cholecalciferol, Vitamin D3, 2,000 unit cap Take 1 tablet by mouth once daily. multivitamins(DAILY VITAMIN TAB) Take one(1) tablet daily. ACETAMINOPHEN 500 MG TAB Take one(1) tablet every four(4) to six(6) hours as needed for pain. azelaic acid(FINACEA 15 % TOPICAL GEL) am/hs OTC NUTRITIONAL SUPPLEMENT calcium qd FAMILY HISTORY Problem Relation Age of Onset - Heart Mother - Heart Father - Cancer Mother lung Social History Substance Use Topics - Smoking status: Former Smoker Packs/day: 1.00 Years: 15.00 Types: Cigarettes Quit date: 12/17/1984 - Smokeless tobacco: Never Used - Alcohol use 3.0 oz/week 2 Glasses of Wine (5oz) per week Comment: 1-2 per week Objective Physical Exam Constitutional: She is well-developed, well-nourished, and in no distress. HENT: Head: Normocephalic. Eyes: Conjunctivae are normal. Right eye exhibits no discharge. Left eye exhibits no discharge. Neck: Neck supple. Cardiovascular: Normal rate, regular rhythm and normal heart sounds. Pulmonary/Chest: Effort normal and breath sounds normal. No respiratory distress. She has no wheezes. Abdominal: Soft. She exhibits no distension and no mass. There is no hepatosplenomegaly. There is no tenderness. There is no guarding and no CVA tenderness. Lymphadenopathy: She has no cervical adenopathy. Neurological: She is alert. Nursing note and vitals reviewed. ASSESSMENT/PLAN: 1. Acute cystitis with hematuria - ICD9: 595.0, ICD10: N30.01 (primary diagnosis) - CEPHALEXIN 500 MG CAPSULE 2. Dysuria - ICD9: 788.1, ICD10: R30.0 acute - UA positive for tal esterase and hematuria - Send urine for culture - Begin treatment with Keflex for 7 days - Patient education for prevention given - UA DIP B/O - URINE CULTURE - Follow-up with your PCP in 3-5 days if symptoms have not improved or sooner if symptoms worsen - Discussed red flags and need for immediate medical evaluation if any occur. - Discussed supportive care treatment with fluids, rest and analgesia. - Discussed expected course of illness Forrest Tabor APRN.SCALE CLERK CNOV Observed: 09/07/2017 Status: COMPLETED Source: [place] 10:00 AM [facility] REPOSITORY Office Visit (WSTR) ISAIAH SHEA ([id number]) 1940 F [place] Date Time Provider Department 09/07/17 10:00 AM FORREST TABOR (SCALE CLERK) [facility] During your visit today, we recorded the following information about you: Temperature Pulse Respiration Blood pressure 98 degrees 62/minute 16/minute 130/90 Weight 90.3 kg Forrest Tabor APRN.CHRISTIAN 09/07/2017 10:29 AM Signed Subjective HPI Isaiah Shea is a 77 year old female who presents with dysuria, frequency, and urgency for the past 4 days. She has been taking prednisone for a poison rosenda rash which is resolving. She denies back pain or abdominal pain. No fever at home. Review of Systems Constitutional: Negative. Negative for chills and fever. Gastrointestinal: Negative. Negative for abdominal pain, diarrhea, nausea and vomiting. Genitourinary: Positive for dysuria, frequency and urgency. Negative for flank pain and hematuria. Musculoskeletal: Negative. Negative for back pain. BP 130/90 Pulse 62 Temp 36.7 ?C (98 ?F) (Left Tympanic) Resp 16 Wt 90.3 kg (199 lb) BMI 32.12 kg/m? 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 - Bowel disease - Diarrhea - Diverticulosis of colon (without mention of hemorrhage) - Esophageal reflux - Hypertension - Obesity, unspecified - Other and unspecified hyperlipidemia - Other and unspecified noninfectious gastroenteritis and colitis(558.9) - Rosacea - Thyroid disorder - Ulcerative colitis (HCC) - Unspecified disorder resulting from impaired renal function PAST SURGICAL HISTORY Procedure Laterality Date - COLONOSCOP W/ OR W/O BRSH SPEC 05/17/05 attempted colonoscopy BA Enema for 05-18-05 - COLONOSCOP W/ OR W/O BRSH SPEC 07/08/11 Performed by León Parrish MD - COLONOSCOPY W/BX 09/21/07 - COLONOSCOPY W/BX colitis - 70cm to rectum - COLONOSCOPY W/BX 07/03/09 colitis rectum to 40cm - EGD W/O [facility] SPECIMEN W/BX gastritis - LAP COLECTOMY W COLOPROCTOST 10/23/2007 - LIGATE FALLOPIAN TUBE Tubal ligation - PART REMOVAL COLON W END COLOSTOMY 06/28/2007 complicated diverticulitis' - PAST SURGICAL HISTORY OF neuro - REMOVAL OF TONSILS,<12 Y/O Tonsillectomy ALLERGIES Neomycin; Sulfasalazine MEDICATIONS predniSONE (DELTASONE) 10 mg tablet Take 4 tabs daily for 3 days, then 2 tabs daily for 3 days, then 1 tab daily for 3 days with food. triamcinolone acetonide (KENALOG) 0.1 % cream Apply 1 application to affected area twice daily. cyanocobalamin, vitamin B-12, (VITAMIN B-12 ORAL) Take by mouth once daily. mesalamine (DELZICOL) 400 mg Delayed Release Cap Take 2 capsules by mouth three times daily. Denies side effects to this medication inFLIXimab (REMICADE) 100 mg injection PREMEDICATE WITH TYLENOL 650 MG PO AND BENADRYL 25MG PO 400 mg IV every 8 wks. Most recent weight on 01-02-2017 was 87.5 kg levothyroxine (SYNTHROID) 100 mcg tablet Take 1 tablet by mouth once daily. lisinopril-hydrochlorothiazide (PRINZIDE,ZESTORETIC) 20-12.5 mg per tablet Take 1 tablet by mouth once daily. omeprazole (PRILOSEC) 20 mg capsule Take 1 capsule by mouth daily before breakfast. 1/2 hr before meal. simvastatin (ZOCOR) 20 mg tablet Take 1 tablet by mouth daily at bedtime. Blood Pressure Test Kit-Large (QUICK RESPONSE BP MONITOR) kit Check blood pressure weekly and as needed. Essential hypertension--I10. oxybutynin ER (DITROPAN XL) 10 mg 24 hr tablet TAKE 1 TABLET DAILY inFLIXimab (REMICADE) 100 mg injection PREMEDICATE WITH TYLENOL 650 MG PO AND BENADRYL 25MG PO 500mg IV every 8 wks. Infusion can be done at [facility] [place] Cholecalciferol, Vitamin D3, 2,000 unit cap Take 1 tablet by mouth once daily. multivitamins(DAILY VITAMIN TAB) Take one(1) tablet daily. ACETAMINOPHEN 500 MG TAB Take one(1) tablet every four(4) to six(6) hours as needed for pain. azelaic acid(FINACEA 15 % TOPICAL GEL) am/hs OTC NUTRITIONAL SUPPLEMENT calcium qd FAMILY HISTORY Problem Relation Age of Onset - Heart Mother - Heart Father - Cancer Mother lung Social History Substance Use Topics - Smoking status: Former Smoker Packs/day: 1.00 Years: 15.00 Types: Cigarettes Quit date: 12/17/1984 - Smokeless tobacco: Never Used - Alcohol use 3.0 oz/week 2 Glasses of Wine (5oz) per week Comment: 1-2 per week Objective Physical Exam Constitutional: She is well-developed, well-nourished, and in no distress. HENT: Head: Normocephalic. Eyes: Conjunctivae are normal. Right eye exhibits no discharge. Left eye exhibits no discharge. Neck: Neck supple. Cardiovascular: Normal rate, regular rhythm and normal heart sounds. Pulmonary/Chest: Effort normal and breath sounds normal. No respiratory distress. She has no wheezes. Abdominal: Soft. She exhibits no distension and no mass. There is no hepatosplenomegaly. There is no tenderness. There is no guarding and no CVA tenderness. Lymphadenopathy: She has no cervical adenopathy. Neurological: She is alert. Nursing note and vitals reviewed. ASSESSMENT/PLAN: 1. Acute cystitis with hematuria - ICD9: 595.0, ICD10: N30.01 (primary diagnosis) - CEPHALEXIN 500 MG CAPSULE 2. Dysuria - ICD9: 788.1, ICD10: R30.0 acute - UA positive for tal esterase and hematuria - Send urine for culture - Begin treatment with Keflex for 7 days - Patient education for prevention given - UA DIP B/O - URINE CULTURE - Follow-up with your PCP in 3-5 days if symptoms have not improved or sooner if symptoms worsen - Discussed red flags and need for immediate medical evaluation if any occur. - Discussed supportive care treatment with fluids, rest and analgesia. - Discussed expected course of illness RYAN Garvey APRN.CNP 09/07/2017 10:22 AM Signed [facility] PATIENT INFO BLADDER INFECTION OVERVIEW Bladder infections are one of the most common infections, causing symptoms of burning with urination and needing to urinate frequently. A bladder infection is a type of urinary tract infection (UTI). Bladder infections are more common is women than men. Most women have an uncomplicated bladder infection that is easily treated with a short course of antibiotics. In men, bladder infections may also affect the prostate gland, and a longer course of treatment may be needed. BLADDER INFECTION CAUSES The urinary tract includes the kidneys (which filter urine), ureters (the tube that carries urine from the kidneys to the bladder), the bladder (which stores urine), and urethra (the tube that carries urine out of the bladder). Bacteria do not normally live in these areas. However, bacteria normally live close to the urethra in women and men who are not circumcised. Bladder infections occur when bacteria travel up the urethra into the bladder. Factors that increase the risk of developing a bladder infection include: ? Vaginal sex ? Use of spermicides ? History of past bladder infections ? Diabetes In men, not being circumcised or having anal sex increase the risk of bladder infections. BLADDER INFECTION SYMPTOMS The typical symptoms of a bladder infection include: ? Pain or burning when urinating ? Frequent need to urinate ? Urgent need to urinate ? Blood in the urine Fever, back pain, nausea, or vomiting are not common symptoms of a bladder infection, but can occur in people with a kidney infection (pyelonephritis). If you have these symptoms, you should call your doctor or nurse immediately. Is it a bladder infection or something else? ? Burning with urination can also occur in people with vaginitis (eg, yeast infection) or urethritis (inflammation of the urethra). For this reason, it is important to call your healthcare provider before assuming you have a bladder infection. BLADDER INFECTION DIAGNOSIS Simple bladder infections are usually diagnosed based upon your symptoms alone. However, most patients, especially those who have bladder infection symptoms for the first time, should see a healthcare provider for urine testing. Urine culture ? A urine culture is a test that uses a sample of urine to try and grow bacteria in a laboratory. It usually requires about 48 hours to get results. However, a urine culture is not always required to diagnose a bladder infection. Urine culture is often recommended if: ? You have never had a bladder infection before ? You have symptoms that are not typical for bladder infection ? You have had resistant bladder infections before ? You have frequent bladder infections ? You do not begin to feel better within 24 to 48 hours after starting antibiotics ? You are BLADDER INFECTION TREATMENT Bladder infection ? In young, healthy adolescents and adults with a bladder infection, the usual treatment includes a three to seven day course of antibiotics. The typical drugs chosen are: trimethoprim-sulfamethoxazole (Bactrim?), nitrofurantoin (Macrobid?), ciprofloxacin (Cipro?) or levofloxacin (Levaquin?). In men, the infection may involve your prostate gland and treatment is usually given for at least 7 days. Your symptoms should begin to resolve within one day after starting treatment. It is important to take the full course of antibiotics to completely eliminate the infection. If your symptoms persist for more than two or three days after starting treatment, call your healthcare provider. If needed, you can take a prescription medication that numbs the bladder and urethra (phenazopyridine [Pyridium?]) to reduce the burning pain of some UTIs. A similar medication is available without a prescription (eg, Uristat). Both medications change the color of the urine (usually blue or orange) and can interfere with laboratory testing. You should not take these medications for more than 48 hours due to the risk of side effects. These medications do not treat the infection and must be taken along with an antibiotic. Some providers recommend drinking more fluids while treating bladder infections to help flush bacteria from the bladder. Others believe that drinking more fluids may dilute the antibiotic in the bladder and make the medication less effective. No studies have been performed to address this issue. There are also no good studies on the effectiveness of cranberry juice for treating a bladder infection; we do not recommend using cranberry juice to treat bladder infections. Follow-up care ? Follow-up testing is not needed in healthy, young men or women with a bladder infection if symptoms resolve. women are usually asked to have a repeat urine culture one to two weeks after treatment has ended to make sure the bacteria are no longer in the urine. RECURRENT BLADDER INFECTIONS Bladder infections versus other causes ? Some adults, especially women, develop bladder infections frequently. In this case, it is important to confirm that your symptoms (eg, pain or burning, frequency, and urgency) are caused by a bladder infection. Symptoms are usually similar from one infection to another. The best way to confirm an infection is to have a urine culture. If your urine culture is negative for infection, other causes of pain, burning, and frequency should be investigated. There is no reason to take antibiotics if your urine culture is negative. Need for further testing ? If you continue to develop bladder infections, you may require further testing. If you continue to notice blood in your urine after your bladder infection has cleared, you should have further testing. Preventing recurrent UTIs ? Women with recurrent urinary tract infections may be advised to take steps to prevent bladder infections, including one or more of the following: Changes in control ? Women who develop frequent bladder infections and use spermicides, particularly those who also use a diaphragm, may be encouraged to use an alternate method of control. Cranberry products ? Taking cranberry juice or cranberry tablets has been promoted as one way to help prevent frequent bladder infections. However, this has not been proven. Drinking more fluid and urinating after intercourse ? Although studies have not proven that drinking more fluids or urinating soon after intercourse can prevent infection, some healthcare providers recommend these measures since they are not harmful. Drinking more fluid may help to wash out bacteria that enter the bladder. Postmenopausal women ? Postmenopausal women who develop recurrent bladder infections may benefit from using vaginal estrogen. Vaginal estrogen is available in a flexible ring that is worn in the vagina for three months (eg, Estring?), a small tablet (Vagifem?), or a cream (eg, Premarin? or Estrace?). Vaginal estrogen is discussed in more detail in a separate topic review. Antibiotics ? A preventive antibiotic treatment may be recommended if you repeatedly develop bladder infections and have not responded to other preventive measures. Antibiotics are highly effective in preventing recurrent bladder infections and can be taken in several different ways. ? Preventive antibiotic ? You can take a low dose of an antibiotic once per day or three times per week for six months to several years. ? Antibiotics following intercourse ? In women who develop urinary tract infections after sex, taking a single low dose antibiotic after intercourse can help to prevent bladder infections. ? Self-treatment ? A plan to begin antibiotics at the first sign of a bladder infection may be recommended in some situations. Before starting this regimen, it is important that you have had testing (urine cultures) to confirm that your symptoms are caused by a bladder infection; some people have symptoms of a bladder infection but do not actually have an infection. Referring Provider: SELF [200] Allergies As of Date: 09/07/2017 Noted Allergy Reaction NEOMYCIN 12/12/2007 Comments: Optic drops grittiness in eyes per opthomologist SULFASALAZINE 01/08/2011 2 - Rash Date Reviewed: 09/07/2017 Reviewed by: Forrest ([facility]) [place] - Fully Assessed Reason for Visit: Dysuria [1085] Primary Visit Diagnosis:Acute cystitis with hematuria [N30.01] Other Visit Diagnosis:Dysuria [R30.0] Order(s):UA DIP B/O [[id number]] Order #: [id number] URINE CULTURE [SQURCUL] Order #: [id number] cephALEXin (KEFLEX) 500 mg capsuleTake 1 capsule by mouth twice daily for 7 days.Disp: 14 capsuleRfl: 0 Prescriptions as of 09/07/2017 Sig: CEPHALEXIN 500 MG CAPSULE Take 1 capsule by mouth twice* PREDNISONE 10 MG TABLET Take 4 tabs daily for 3 days,* TRIAMCINOLONE ACETONIDE 0.1 %* Apply 1 application to affect* VITAMIN B-12 ORAL Take by mouth once daily. MESALAMINE 400 MG CAPSULE,DEL* Take 2 capsules by mouth thre* INFLIXIMAB 100 MG INTRAVENOUS* PREMEDICATE WITH TYLENOL 650* LEVOTHYROXINE 100 MCG TABLET Take 1 tablet by mouth once d* LISINOPRIL 20 MG-HYDROCHLOROT* Take 1 tablet by mouth once d* OMEPRAZOLE 20 MG CAPSULE,BIANKA* Take 1 capsule by mouth daily* SIMVASTATIN 20 MG TABLET Take 1 tablet by mouth daily * BLOOD PRESSURE TEST KIT-LARGE* Check blood pressure weekly a* OXYBUTYNIN CHLORIDE ER 10 MG * TAKE 1 TABLET DAILY INFLIXIMAB 100 MG INTRAVENOUS* PREMEDICATE WITH TYLENOL 650* CHOLECALCIFEROL (VITAMIN D3) * Take 1 tablet by mouth once d* DAILY VITAMIN TABLET Take one(1) tablet daily. ACETAMINOPHEN 500 MG TABLET Take one(1) tablet every four* FINACEA 15 % TOPICAL GEL am/hs OTC NUTRITIONAL SUPPLEMENT calcium qd Problem List As Of Date 09/07/2017 Noted Resolved ROSACEA [L71.9] OBESITY NOS [E66.9] Mixed hyperlipidemia [E78.2] Priority: B BENIGN HYPERTENSION [I10] 08/03/2007 DIVERTICULOSIS OF COLON W/O BLEED [K57.30] NONHEALING SURGICAL WOUND [T81.89XA] INVALID FOR*12/12/2007 DIVERTICULITIS OF COLON W/O BLEED [K57.32] INVALID FOR*12/12/2007 More... Acquired hypothyroidism [E03.9] INVALID FOR* Priority: A Anemia, unspecified [D64.9] INVALID FOR* Priority: B DIVERTICULITIS OF COLON W/O BLEED [K57.32] INVALID FOR* Elevated blood pressure reading without diagnos*INVALID FOR*10/07/2011 Diarrhea [R19.7] INVALID FOR* Gastritis/duodenitis [K29.70, K29.90] INVALID FOR* Other and unspecified noninfectious gastroenter*INVALID FOR* Acute gastritis without mention of hemorrhage [*INVALID FOR* Unspecified disorder resulting from impaired re*INVALID FOR* Priority: A Esophageal reflux [K21.9] INVALID FOR* Priority: C Nonspecific colitis [K52.9] INVALID FOR* Priority: Moderate More... Anemia due to blood loss [D50.0] INVALID FOR* Routine gynecological examination [Z01.419] INVALID FOR* Priority: B Class: Chronic More... 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 A bladder infection is a type of urinary tract infection (UTI). Bladder infections are more common is women than men. Most women have an uncomplicated bladder infection that is easily treated with a short course of antibiotics. In men, bladder infections may also affect the prostate gland, and a longer course of treatment may be needed. BLADDER INFECTION CAUSES The urinary tract includes the kidneys (which filter urine), ureters (the tube that carries urine from the kidneys to the bladder), the bladder (which stores urine), and urethra (the tube that carries urine out of the bladder). Bacteria do not normally live in these areas. However, bacteria normally live close to the urethra in women and men who are not circumcised. Bladder infections occur when bacteria travel up the urethra into the bladder. Factors that increase the risk of developing a bladder infection include: ? Vaginal sex ? Use of spermicides ? History of past bladder infections ? Diabetes In men, not being circumcised or having anal sex increase the risk of bladder infections. BLADDER INFECTION SYMPTOMS The typical symptoms of a bladder infection include: ? Pain or burning when urinating ? Frequent need to urinate ? Urgent need to urinate ? Blood in the urine Fever, back pain, nausea, or vomiting are not common symptoms of a bladder infection, but can occur in people with a kidney infection (pyelonephritis). If you have these symptoms, you should call your doctor or nurse immediately. Is it a bladder infection or something else? ? Burning with urination can also occur in people with vaginitis (eg, yeast infection) or urethritis (inflammation of the urethra). For this reason, it is important to call your healthcare provider before assuming you have a bladder infection. BLADDER INFECTION DIAGNOSIS Simple bladder infections are usually diagnosed based upon your symptoms alone. However, most patients, especially those who have bladder infection symptoms for the first time, should see a healthcare provider for urine testing. Urine culture ? A urine culture is a test that uses a sample of urine to try and grow bacteria in a laboratory. It usually requires about 48 hours to get results. However, a urine culture is not always required to diagnose a bladder infection. Urine culture is often recommended if: ? You have never had a bladder infection before ? You have symptoms that are not typical for bladder infection ? You have had resistant bladder infections before ? You have frequent bladder infections ? You do not begin to feel better within 24 to 48 hours after starting antibiotics ? You are BLADDER INFECTION TREATMENT Bladder infection ? In young, healthy adolescents and adults with a bladder infection, the usual treatment includes a three to seven day course of antibiotics. The typical drugs chosen are: trimethoprim-sulfamethoxazole (Bactrim?), nitrofurantoin (Macrobid?), ciprofloxacin (Cipro?) or levofloxacin (Levaquin?). In men, the infection may involve your prostate gland and treatment is usually given for at least 7 days. Your symptoms should begin to resolve within one day after starting treatment. It is important to take the full course of antibiotics to completely eliminate the infection. If your symptoms persist for more than two or three days after starting treatment, call your healthcare provider. If needed, you can take a prescription medication that numbs the bladder and urethra (phenazopyridine [Pyridium?]) to reduce the burning pain of some UTIs. A similar medication is available without a prescription (eg, Uristat). Both medications change the color of the urine (usually blue or orange) and can interfere with laboratory testing. You should not take these medications for more than 48 hours due to the risk of side effects. These medications do not treat the infection and must be taken along with an antibiotic. Some providers recommend drinking more fluids while treating bladder infections to help flush bacteria from the bladder. Others believe that drinking more fluids may dilute the antibiotic in the bladder and make the medication less effective. No studies have been performed to address this issue. There are also no good studies on the effectiveness of cranberry juice for treating a bladder infection; we do not recommend using cranberry juice to treat bladder infections. Follow-up care ? Follow-up testing is not needed in healthy, young men or women with a bladder infection if symptoms resolve. women are usually asked to have a repeat urine culture one to two weeks after treatment has ended to make sure the bacteria are no longer in the urine. RECURRENT BLADDER INFECTIONS Bladder infections versus other causes ? Some adults, especially women, develop bladder infections frequently. In this case, it is important to confirm that your symptoms (eg, pain or burning, frequency, and urgency) are caused by a bladder infection. Symptoms are usually similar from one infection to another. The best way to confirm an infection is to have a urine culture. If your urine culture is negative for infection, other causes of pain, burning, and frequency should be investigated. There is no reason to take antibiotics if your urine culture is negative. Need for further testing ? If you continue to develop bladder infections, you may require further testing. If you continue to notice blood in your urine after your bladder infection has cleared, you should have further testing. Preventing recurrent UTIs ? Women with recurrent urinary tract infections may be advised to take steps to prevent bladder infections, including one or more of the following: Changes in control ? Women who develop frequent bladder infections and use spermicides, particularly those who also use a diaphragm, may be encouraged to use an alternate method of control. Cranberry products ? Taking cranberry juice or cranberry tablets has been promoted as one way to help prevent frequent bladder infections. However, this has not been proven. Drinking more fluid and urinating after intercourse ? Although studies have not proven that drinking more fluids or urinating soon after intercourse can prevent infection, some healthcare providers recommend these measures since they are not harmful. Drinking more fluid may help to wash out bacteria that enter the bladder. Postmenopausal women ? Postmenopausal women who develop recurrent bladder infections may benefit from using vaginal estrogen. Vaginal estrogen is available in a flexible ring that is worn in the vagina for three months (eg, Estring?), a small tablet (Vagifem?), or a cream (eg, Premarin? or Estrace?). Vaginal estrogen is discussed in more detail in a separate topic review. Antibiotics ? A preventive antibiotic treatment may be recommended if you repeatedly develop bladder infections and have not responded to other preventive measures. Antibiotics are highly effective in preventing recurrent bladder infections and can be taken in several different ways. ? Preventive antibiotic ? You can take a low dose of an antibiotic once per day or three times per week for six months to several years. ? Antibiotics following intercourse ? In women who develop urinary tract infections after sex, taking a single low dose antibiotic after intercourse can help to prevent bladder infections. ? Self-treatment ? A plan to begin antibiotics at the first sign of a bladder infection may be recommended in some situations. Before starting this regimen, it is important that you have had testing (urine cultures) to confirm that your symptoms are caused by a bladder infection; some people have symptoms of a bladder infection but do not actually have an infection. Prescriptions ordered this encounter Disp Refills Start End CEPHALEXIN 500 MG CAPSULE 14 c* 0 09/07/2017 09/14/2017 Route: ORAL Sig: Take 1 capsule by mouth twice daily for 7 days. 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 OFFICE VISIT Observed: 08/31/2017 Status: F Source: PATO REPORT 11:46 AM [facility] [address] [place] [address] OFFICE VISIT Date of Service: 08/31/17 MR#: [id number] Acct: [id number] Name: ISAIAH SHEA Rep #: [id number] : 1940 Provider: Savanna Mclean MD Age/Sex: 77/F [place] [facility] [place]: Signed Intake Vital Signs08/31/17 Height 5 ft 6 in 08/31/17 Weight: 203 lb 2 oz 08/31/17 Body Mass Index (BMI) 32.8 Intake Visit Reasons: ANNUAL EXAM Chief Complaint: est annual Campus Director Required: No Is patient in pain?: Yes Allergies neomycin Allergy (Mild, Verified 08/31/17 09:31) Other Sulfa (Sulfonamide Antibiotics) Allergy (Mild, Verified 08/31/17 09:31) Other Is last menstrual period known: No Post menopausal: Yes Patient : No : No PFSH Medical History Colitis (Acute) Hypertension (Chronic) Surgical History H/O tubal ligation (Acute) Family History Mother Cancer lung Heart disease Hypertension Father Heart disease Social History Smoking Status: Never smoker alcohol intake: never substance use type: does not use caffeine: Yes what type of physical activity do you participate in: walking seatbelt use: always do you feel safe at home: Yes additional social history: Matt- Both are Retired Pregancy History 2 Elective abortions Hx Para 2 Spontaneous abortions Past Pregnancies Del. DatName GA/WeeksOutcome Route [facility] LgAnesthesDel LocaProviderFOB e ht en tn Unknown 1965 Hedy c Unknown 1969 Nate hael HPI ANNUAL EXAM: Details: ISAIAH SHEA is a 77 year old who presents for annual exam. Last PAP: on immunosuppression so high risk patient History of abnormal PAP: no Last mammogram: due History of abnormal mammogram: no Colon cancer screening: per pcp Other preventative health care screenings: per pcp ROS GI Details: has UC- symptoms stable : Reports system reviewed and no additional complaints, except as docu, urinary urgency and urinary incontinence (mild urge limited treatment by vesicare) Skin Skin/Breast: Reports sores and rash Exam Const General: cooperative, healthy appearing, comfortable, no acute distress, well developed, well groomed [facility] Head: normal to inspection, normocephalic Ears: hearing grossly normal bilaterally, external ears normal Nose: external nose normal Face and sinus: normal facial exam Neck Neck: normal visual inspection, full ROM, no lymphadenopathy Thyroid: thyroid normal Chest Chest palpation AND inspection: normal inspection of the chest Breast inspection: normal inspection of the breasts, normal inspection of the axillae Breast palpation: normal palpation of the breasts, normal palpation of the axillae, no axillary lymphadenopathy Resp Effort AND Inspection: normal respiratory effort GI Inspection: normal to inspection, non-distended Palpation: no guarding, soft, no hepatosplenomegaly General: bladder normal to palpation External Female Exam: normal external appearance, normal appearance of the urethra, no lesions Urethra: normal appearance of the urethra, normal palpation Speculum Exam - Vagina: normal appearance of the vagina, normal vaginal discharge Speculum Exam - Cervix: normal appearance of the cervix, no cervical discharge, no lesions, nontender Bimanual Exam- Vagina AND Uterus: No cervical tenderness, normal bimanual exam, uterine size normal, bladder normal to palpation, uterine mobility normal, uterine consistency normal, uterus non-tender, no cervical motion tenderness Bimanual Exam- Adnexa, other: normal adnexae, no adnexal masses, adnexae non-tender Skin Lesions: lesion noted Rashes: rashes noted Neuro General: alert, moves all extremities, no focal motor deficits Extrem General: no pedal edema, normal to inspection Psych Appearance: grossly normal Mental Status: mental status grossly normal Affect: normal affect Speech and Movement: speech and movement normal Attitude: cooperative Assessment AND Plan Problems 1. BUCKET PUSHER exam for high-risk Medicare patient Z91.89 Plan pap done because on immunosuppressant, other care per PCP, mamm ordered Orders Orders: Coding Level of Care Code MC Pap Diagnoses BUCKET PUSHER exam for high-risk Medicare patient Z91.89 08/31/17 1146 <Electronically signed by Savanna Mclean MD> Date Savanna Mclean MD Cosigner Signature: Date (if applicable) CC: PROGRESS Observed: 08/31/2017 Status: COMPLETED Source: [place] 11:18 AM [facility] REPOSITORY O ID: [id number] Author: Rocio Crenshaw Service: (none) Author Type: Nurse Practitioner Type: Progress Notes Filed: 08/31/2017 12:30 PM Note Text: Subjective HPI Pt presents with c/o itchy rash after exposure to poison rosenda. Pt was wearing gloves during exposure and washed with poison rosenda wash right after. Rash started on left forearm ten spread to left trunk, right arm and chin. Denies fever, chills. Has applied topical poison rosenda meds with minimal improvement. Review of Systems Constitutional: Negative for chills and fever. Skin: Positive for itching and rash. Objective Physical Exam Constitutional: She is oriented to person, place, and time and well-developed, well-nourished, and in no distress. No distress. Neurological: She is alert and oriented to person, place, and time. Skin: Skin is warm and dry. Rash noted. Rash is maculopapular and vesicular. She is not diaphoretic. Vesicular and maculopapular lesions in patches and scattered to areas noted. Clear, yellowish drainage to some areas. No signs of secondary infection noted. BP 140/80 Pulse 72 Temp 36.3 ?C (97.4 ?F) (Left Tympanic) Resp 16 Wt 90.7 kg (200 lb) BMI 32.28 kg/m? 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 - Bowel disease - Diarrhea - Diverticulosis of colon (without mention of hemorrhage) - Esophageal reflux - Hypertension - Obesity, unspecified - Other and unspecified hyperlipidemia - Other and unspecified noninfectious gastroenteritis and colitis(558.9) - Rosacea - Thyroid disorder - Ulcerative colitis (HCC) - Unspecified disorder resulting from impaired renal function PAST SURGICAL HISTORY Procedure Laterality Date - COLONOSCOP W/ OR W/O [facility] SPEC 05/17/05 attempted colonoscopy BA Enema for -10-14 - COLONOSCOP W/ OR W/O [facility] SPEC 07/08/11 Performed by León Parrish MD - COLONOSCOPY W/BX 09/21/07 - COLONOSCOPY W/BX colitis - 70cm to rectum - COLONOSCOPY W/BX 07/03/09 colitis rectum to 40cm - EGD W/O [facility] SPECIMEN W/BX gastritis - LAP COLECTOMY W COLOPROCTOST 10/23/2007 - LIGATE FALLOPIAN TUBE Tubal ligation - PART REMOVAL COLON W END COLOSTOMY 06/28/2007 complicated diverticulitis' - PAST SURGICAL HISTORY OF neuro - REMOVAL OF TONSILS,<12 Y/O Tonsillectomy ALLERGIES Neomycin; Sulfasalazine MEDICATIONS predniSONE (DELTASONE) 10 mg tablet Take 4 tabs daily for 3 days, then 2 tabs daily for 3 days, then 1 tab daily for 3 days with food. triamcinolone acetonide (KENALOG) 0.1 % cream Apply 1 application to affected area twice daily. cyanocobalamin, vitamin B-12, (VITAMIN B-12 ORAL) Take by mouth once daily. mesalamine (DELZICOL) 400 mg Delayed Release Cap Take 2 capsules by mouth three times daily. Denies side effects to this medication inFLIXimab (REMICADE) 100 mg injection PREMEDICATE WITH TYLENOL 650 MG PO AND BENADRYL 25MG PO 400 mg IV every 8 wks. Most recent weight on 01-02-2017 was 87.5 kg levothyroxine (SYNTHROID) 100 mcg tablet Take 1 tablet by mouth once daily. lisinopril-hydrochlorothiazide (PRINZIDE,ZESTORETIC) 20-12.5 mg per tablet Take 1 tablet by mouth once daily. omeprazole (PRILOSEC) 20 mg capsule Take 1 capsule by mouth daily before breakfast. 1/2 hr before meal. simvastatin (ZOCOR) 20 mg tablet Take 1 tablet by mouth daily at bedtime. Blood Pressure Test Kit-Large (QUICK RESPONSE BP MONITOR) kit Check blood pressure weekly and as needed. Essential hypertension--I10. oxybutynin ER (DITROPAN XL) 10 mg 24 hr tablet TAKE 1 TABLET DAILY inFLIXimab (REMICADE) 100 mg injection PREMEDICATE WITH TYLENOL 650 MG PO AND BENADRYL 25MG PO 500mg IV every 8 wks. Infusion can be done at [facility] [place] Cholecalciferol, Vitamin D3, 2,000 unit cap Take 1 tablet by mouth once daily. multivitamins(DAILY VITAMIN TAB) Take one(1) tablet daily. ACETAMINOPHEN 500 MG TAB Take one(1) tablet every four(4) to six(6) hours as needed for pain. azelaic acid(FINACEA 15 % TOPICAL GEL) am/hs OTC NUTRITIONAL SUPPLEMENT calcium qd FAMILY HISTORY Problem Relation Age of Onset - Heart Mother - Heart Father - Cancer Mother lung Social History Substance Use Topics - Smoking status: Former Smoker Packs/day: 1.00 Years: 15.00 Types: Cigarettes Quit date: 12/17/1984 - Smokeless tobacco: Never Used - Alcohol use 3.0 oz/week 2 Glasses of Wine (5oz) per week Comment: 1-2 per week ASSESSMENT/PLAN: 1. Contact dermatitis due to plant - ICD9: 692.6, ICD10: L25.5 - discussed skin care of rash - follow up if symptoms persist or worsen. - PREDNISONE 10 MG TABLET - TRIAMCINOLONE ACETONIDE 0.1 % TOPICAL CREAM The patient is instructed to return or seek emergency treatment if symptoms become worse or with any acute change in condition. The patient verbalizes understanding and is in agreement with plan of care. Rocio Crenshaw CNP CNOV Observed: 08/31/2017 Status: COMPLETED Source: [place] 10:30 AM [facility] REPOSITORY Office Visit (WSTR) ISAIAH SHEA ([id number]) 1940 F CANDICE Date Time Provider Department 08/31/17 10:30 AM ROCIO CRENSHAW [facility] During your visit today, we recorded the following information about you: Temperature Pulse Respiration Blood pressure 97.4 degrees 72/minute 16/minute 140/80 Weight 90.7 kg Rocio Crenshaw APRN.CNP 08/31/2017 10:45 AM Signed Poison Rosenda and Poison [place] 1. Thoroughly wash your entire body with a gentle soap like Ivory or Dove. This will help remove any oils or resins that remain on your body and limit your spreading them elsewhere on your body 2. Thoroughly was any clothing, bedding, towels, and linen that may have come in contact with the poison oak, poison rosenda, or other allergen. This will reduce the likelihood of your continuing to expose yourself 3. You may take 25-50mg of Benadryl every 6 hours as needed for itching 4. Calamine lotion may help sooth soreness and relieve mild itching 5. Aveeno Bath may also help sooth soreness and relieve mild itching See your doctor or return to the Urgent Care if you develop shortness of breath, wheezing, or symptoms involving your eyes. Rocio Crenshaw APRN.CNP 08/31/2017 12:30 PM Signed Subjective HPI Pt presents with c/o itchy rash after exposure to poison rosenda. Pt was wearing gloves during exposure and washed with poison rosenda wash right after. Rash started on left forearm ten spread to left trunk, right arm and chin. Denies fever, chills. Has applied topical poison rosenda meds with minimal improvement. Review of Systems Constitutional: Negative for chills and fever. Skin: Positive for itching and rash. Objective Physical Exam Constitutional: She is oriented to person, place, and time and well-developed, well-nourished, and in no distress. No distress. Neurological: She is alert and oriented to person, place, and time. Skin: Skin is warm and dry. Rash noted. Rash is maculopapular and vesicular. She is not diaphoretic. Vesicular and maculopapular lesions in patches and scattered to areas noted. Clear, yellowish drainage to some areas. No signs of secondary infection noted. BP 140/80 Pulse 72 Temp 36.3 ?C (97.4 ?F) (Left Tympanic) Resp 16 Wt 90.7 kg (200 lb) BMI 32.28 kg/m? 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 - Bowel disease - Diarrhea - Diverticulosis of colon (without mention of hemorrhage) - Esophageal reflux - Hypertension - Obesity, unspecified - Other and unspecified hyperlipidemia - Other and unspecified noninfectious gastroenteritis and colitis(558.9) - Rosacea - Thyroid disorder - Ulcerative colitis (HCC) - Unspecified disorder resulting from impaired renal function PAST SURGICAL HISTORY Procedure Laterality Date - COLONOSCOP W/ OR W/O [facility] SPEC 05/17/05 attempted colonoscopy BA Enema for 05-18-05 - COLONOSCOP W/ OR W/O [facility] SPEC 07/08/11 Performed by León Parrish MD - COLONOSCOPY W/BX 09/21/07 - COLONOSCOPY W/BX colitis - 70cm to rectum - COLONOSCOPY W/BX 07/03/09 colitis rectum to 40cm - EGD W/O [facility] SPECIMEN W/BX gastritis - LAP COLECTOMY W COLOPROCTOST 10/23/2007 - LIGATE FALLOPIAN TUBE Tubal ligation - PART REMOVAL COLON W END COLOSTOMY 06/28/2007 complicated diverticulitis' - PAST SURGICAL HISTORY OF neuro - REMOVAL OF TONSILS,<12 Y/O Tonsillectomy ALLERGIES Neomycin; Sulfasalazine MEDICATIONS predniSONE (DELTASONE) 10 mg tablet Take 4 tabs daily for 3 days, then 2 tabs daily for 3 days, then 1 tab daily for 3 days with food. triamcinolone acetonide (KENALOG) 0.1 % cream Apply 1 application to affected area twice daily. cyanocobalamin, vitamin B-12, (VITAMIN B-12 ORAL) Take by mouth once daily. mesalamine (DELZICOL) 400 mg Delayed Release Cap Take 2 capsules by mouth three times daily. Denies side effects to this medication inFLIXimab (REMICADE) 100 mg injection PREMEDICATE WITH TYLENOL 650 MG PO AND BENADRYL 25MG PO 400 mg IV every 8 wks. Most recent weight on 01-02-2017 was 87.5 kg levothyroxine (SYNTHROID) 100 mcg tablet Take 1 tablet by mouth once daily. lisinopril-hydrochlorothiazide (PRINZIDE,ZESTORETIC) 20-12.5 mg per tablet Take 1 tablet by mouth once daily. omeprazole (PRILOSEC) 20 mg capsule Take 1 capsule by mouth daily before breakfast. 1/2 hr before meal. simvastatin (ZOCOR) 20 mg tablet Take 1 tablet by mouth daily at bedtime. Blood Pressure Test Kit-Large (QUICK RESPONSE BP MONITOR) kit Check blood pressure weekly and as needed. Essential hypertension--I10. oxybutynin ER (DITROPAN XL) 10 mg 24 hr tablet TAKE 1 TABLET DAILY inFLIXimab (REMICADE) 100 mg injection PREMEDICATE WITH TYLENOL 650 MG PO AND BENADRYL 25MG PO 500mg IV every 8 wks. Infusion can be done at [facility] [place] Cholecalciferol, Vitamin D3, 2,000 unit cap Take 1 tablet by mouth once daily. multivitamins(DAILY VITAMIN TAB) Take one(1) tablet daily. ACETAMINOPHEN 500 MG TAB Take one(1) tablet every four(4) to six(6) hours as needed for pain. azelaic acid(FINACEA 15 % TOPICAL GEL) am/hs OTC NUTRITIONAL SUPPLEMENT calcium qd FAMILY HISTORY Problem Relation Age of Onset - Heart Mother - Heart Father - Cancer Mother lung Social History Substance Use Topics - Smoking status: Former Smoker Packs/day: 1.00 Years: 15.00 Types: Cigarettes Quit date: 12/17/1984 - Smokeless tobacco: Never Used - Alcohol use 3.0 oz/week 2 Glasses of Wine (5oz) per week Comment: 1-2 per week ASSESSMENT/PLAN: 1. Contact dermatitis due to plant - ICD9: 692.6, ICD10: L25.5 - discussed skin care of rash - follow up if symptoms persist or worsen. - PREDNISONE 10 MG TABLET - TRIAMCINOLONE ACETONIDE 0.1 % TOPICAL CREAM The patient is instructed to return or seek emergency treatment if symptoms become worse or with any acute change in condition. The patient verbalizes understanding and is in agreement with plan of care. Rocio Crenshaw CNP Referring Provider: SELF [[id number]] Allergies As of Date: 08/31/2017 Noted Allergy Reaction NEOMYCIN 12/12/2007 Comments: Optic drops grittiness in eyes per opthomologist SULFASALAZINE 01/08/2011 2 - Rash Date Reviewed: 08/31/2017 Reviewed by: Carmen Linton Ma - Fully Assessed Reason for Visit: Rash [1087] Primary Visit Diagnosis:Contact dermatitis due to plant [L25.5] Order(s):predniSONE (DELTASONE) 10 mg tabletTake 4 tabs daily for 3 days, then 2 tabs daily for 3 days, then 1 tab daily for 3 days with food.Disp: 21 tabletRfl: 0 triamcinolone acetonide (KENALOG) 0.1 % creamApply 1 application to affected area twice daily.Disp: 80 gRfl: 2 Prescriptions as of 08/31/2017 Sig: PREDNISONE 10 MG TABLET Take 4 tabs daily for 3 days,* TRIAMCINOLONE ACETONIDE 0.1 %* Apply 1 application to affect* VITAMIN B-12 ORAL Take by mouth once daily. MESALAMINE 400 MG CAPSULE,DEL* Take 2 capsules by mouth thre* INFLIXIMAB 100 MG INTRAVENOUS* PREMEDICATE WITH TYLENOL 650* LEVOTHYROXINE 100 MCG TABLET Take 1 tablet by mouth once d* LISINOPRIL 20 MG-HYDROCHLOROT* Take 1 tablet by mouth once d* OMEPRAZOLE 20 MG CAPSULE,BIANKA* Take 1 capsule by mouth daily* SIMVASTATIN 20 MG TABLET Take 1 tablet by mouth daily * BLOOD PRESSURE TEST KIT-LARGE* Check blood pressure weekly a* OXYBUTYNIN CHLORIDE ER 10 MG * TAKE 1 TABLET DAILY INFLIXIMAB 100 MG INTRAVENOUS* PREMEDICATE WITH TYLENOL 650* CHOLECALCIFEROL (VITAMIN D3) * Take 1 tablet by mouth once d* DAILY VITAMIN TABLET Take one(1) tablet daily. 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 Acquired hypothyroidism [E03.9] INVALID FOR* Priority: A Anemia, unspecified [D64.9] INVALID FOR* Priority: B DIVERTICULITIS OF COLON W/O BLEED [K57.32] INVALID FOR* Elevated blood pressure reading without diagnos*INVALID FOR*10/07/2011 Diarrhea [R19.7] INVALID FOR* Gastritis/duodenitis [K29.70, K29.90] INVALID FOR* Other and unspecified noninfectious gastroenter*INVALID FOR* Acute gastritis without mention of hemorrhage [*INVALID FOR* Unspecified disorder resulting from impaired re*INVALID FOR* Priority: A Esophageal reflux [K21.9] INVALID FOR* Priority: C Nonspecific colitis [K52.9] INVALID FOR* Priority: Moderate More... Anemia due to blood loss [D50.0] INVALID FOR* Routine gynecological examination [Z01.419] INVALID FOR* Priority: B Class: Chronic More... 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 Thoroughly wash your entire body with a gentle soap like Ivory or Dove. This will help remove any oils or resins that remain on your body and limit your spreading them elsewhere on your body 2. Thoroughly was any clothing, bedding, towels, and linen that may have come in contact with the poison oak, poison ro[place], or other allergen. This will reduce the likelihood of your continuing to expose yourself 3. You may take 25-50mg of Benadryl every 6 hours as needed for itching 4. Calamine lotion may help sooth soreness and relieve mild itching 5. Aveeno Bath may also help sooth soreness and relieve mild itching See your doctor or return to the Urgent Care if you develop shortness of breath, wheezing, or symptoms involving your eyes. Prescriptions ordered this encounter Disp Refills Start End PREDNISONE 10 MG TABLET 21 t* 0 08/31/2017 09/09/2017 Sig: Take 4 tabs daily for 3 days, then 2 tabs daily for 3 days, then 1 tab daily for 3 days with food. TRIAMCINOLONE ACETONIDE 0.1 % TOPICA* 80 g 2 08/31/2017 Route: TOPICAL Sig: Apply 1 application to affected area twice daily. Encounter Status:Closed by ROCIO CRENSHAW CNP on 08/31/17 PAP IG HPV APTIMA Collected: 08/31/2017 Status: F Source: [place] ,45 10:00 AM [facility] REPOSITORY Order Comment: CYTOLOGY INFORMATION: - CLINICAL INFORMATION:ANNUAL - DATE LMP/MENOPAUSE: MENOPAUSE - COLLECTION VIAL: Thin Prep Vial - BUCKET PUSHER SOURCE: CERVICAL - COLLECTION TECHNIQUE: CX BROOM ONLY, BRUSH ONLY Specimen Comment: [id number] Specimen Comment: No. of containers..01 ThinPrep Vial TYPE CODE TESTS RESULT OUT OF RANGE REFERENCE UNITS LAB L7400.0800 . Normal DIAGN Comment Result Comment: NEGATIVE FOR INTRAEPITHELIAL LESION AND MALIGNANCY. CELLULAR CHANGES ASSOCIATED WITH ATROPHY ARE PRESENT. LAB L7400.0900 . Normal ADEQ Comment Result Comment: Satisfactory for evaluation. Endocervical component may not be distinguished in cases of atrophy. LAB L7400.1400 . Normal PERFORM Comment Result Comment: Rocio Chadwick, Manager Infrastructure (ASCP) LAB L7400.2575 . Normal TEST METHOD Comment Result Comment: This liquid based ThinPrep(R) pap test was screened with the use of an image guided system. LAB L7400.2600 . Normal . COMM LAB L7400.2100 . Normal PAPSMR Comment Result Comment: The Pap smear is a screening test designed to aid in the detection of premalignant and malignant conditions of the uterine cervix. It is not a diagnostic procedure and should not be used as the sole means of detecting cervical cancer. Both false-positive and false-negative reports do occur. LAB L7400.5710 Negative Normal HPV APTIMA, Negative HR Result Comment: This test detects fourteen high-risk HPV types (16/18/31/33/35/39/45/ 51/52/56/58/59/66/68) without differentiation. Performed at: - [facility] [id number] Medical Dosimetrist: Rosemary Martinez MD, Phone: [phone] Performed at: = - [facility] [id number] Medical Dosimetrist: Rosemary Martinez MD, Phone: [phone] Performed By: #### L7400.0280 #### [facility] (refer to report for specific site) refer to report for address and phone number CNOV Observed: 08/23/2017 Status: COMPLETED Source: [place] 1:30 PM [facility] REPOSITORY Office Visit (GASTMN) SHABBIRISAIAH ([id number]) 1940 F CAND[place] Date Time Provider Department 08/23/17 1:30 PM LEÓN PARRISH GASTMN During your visit today, we recorded the following information about you: Temperature Pulse Blood pressure Weight 98.6 degrees 69/minute 152/54 91.2 kg Height 1.676 m León Parrish MD 08/23/2017 7:55 PM Signed Follow Up Visit/ IBD BP 152/54 (BP Site: Left Arm, BP Position: Sitting, BP Cuff Size: Large Adult) Pulse 69 Temp 37 ?C (98.6 ?F) (Oral) Ht 167.6 cm (5' 6) Wt 91.2 kg (201 lb) SpO2 100% BMI 32.44 kg/m? Medications: Current Outpatient Prescriptions: cyanocobalamin, vitamin B-12, (VITAMIN B-12 ORAL) Take by mouth once daily. levothyroxine (SYNTHROID) 100 mcg tablet Take 1 tablet by mouth once daily. lisinopril-hydrochlorothiazide (PRINZIDE,ZESTORETIC) 20-12.5 mg per tablet Take 1 tablet by mouth once daily. omeprazole (PRILOSEC) 20 mg capsule Take 1 capsule by mouth daily before breakfast. 1/2 hr before meal. simvastatin (ZOCOR) 20 mg tablet Take 1 tablet by mouth daily at bedtime. mesalamine (DELZICOL) 400 mg Delayed Release Cap Take 2 capsules by mouth three times daily. Denies side effects to this medication Blood Pressure Test Kit-Large (QUICK RESPONSE BP MONITOR) kit Check blood pressure weekly and as needed. Essential hypertension--I10. inFLIXimab (REMICADE) 100 mg injection PREMEDICATE WITH TYLENOL 650 MG PO AND BENADRYL 25MG PO 400 mg IV every 8 wks. Most recent weight on 01-02-2017 was 87.5 kg oxybutynin ER (DITROPAN XL) 10 mg 24 hr tablet TAKE 1 TABLET DAILY inFLIXimab (REMICADE) 100 mg injection PREMEDICATE WITH TYLENOL 650 MG PO AND BENADRYL 25MG PO 500mg IV every 8 wks. Infusion can be done at [facility] [place] Cholecalciferol, Vitamin D3, 2,000 unit cap Take 1 tablet by mouth once daily. multivitamins(DAILY VITAMIN TAB) Take one(1) tablet daily. ACETAMINOPHEN 500 MG TAB Take one(1) tablet every four(4) to six(6) hours as needed for pain. azelaic acid(FINACEA 15 % TOPICAL GEL) am/hs OTC NUTRITIONAL SUPPLEMENT calcium qd No current facility-administered medications for this visit. Subjective: This 77 year old female with ulcerative colitis here for follow- up. Last seen 07/13/16 192 lbs. Changes and test results since last visit: Current symptoms are: 4-6 bowel movements per day which are formed. Significant rectal urgency, without incontinence. No rectal bleeding. No abdominal pain.Appetite is excellent.arthralgias and fatigueWeight/Height: BP 152/54 (BP Site: Left Arm, BP Position: Sitting, BP Cuff Size: Large Adult) Pulse 69 Temp 37 ?C (98.6 ?F) (Oral) Ht 167.6 cm (5' 6) Wt 91.2 kg (201 lb) SpO2 100% BMI 32.44 kg/m? , which is stable. No eye, skin or joint manifestations of IBD. Objective: Physical Examination General Appearance: Impression: UC- in remission with remicade. Plan: Need PCP for vaccination update, skin exam, pap smear. yearly surveillance colonoscopy refill Delsacol and Remide León Parrish MD Referring Provider: LEÓN PARRISH [[id number]] Allergies As of Date: 08/23/2017 Noted Allergy Reaction NEOMYCIN 12/12/2007 Comments: Optic drops grittiness in eyes per opthomologist SULFASALAZINE 01/08/2011 2 - Rash Date Reviewed: 08/23/2017 Reviewed by: Ana Hinkle Wallpaper Consultant - Fully Assessed Reason for Visit: Established Patient [175] Cmt: Ulcerative colitis Visit Diagnosis:Ulcerative pancolitis without complication (HCC) [K51.00] Order(s):mesalamine (DELZICOL) 400 mg Delayed Release CapTake 2 capsules by mouth three times daily. Denies side effects to this medicationDisp: 540 capsuleRfl: 3 inFLIXimab (REMICADE) 100 mg injectionPREMEDICATE WITH TYLENOL 650 MG PO AND BENADRYL 25MG PO 400 mg IV every 8 wks. Most recent weight on 01-02-2017 was 87.5 kgDisp: 400 mgRfl: 5 Prescriptions as of 08/23/2017 Sig: VITAMIN B-12 ORAL Take by mouth once daily. MESALAMINE 400 MG CAPSULE,DEL* Take 2 capsules by mouth thre* INFLIXIMAB 100 MG INTRAVENOUS* PREMEDICATE WITH TYLENOL 650* LEVOTHYROXINE 100 MCG TABLET Take 1 tablet by mouth once d* LISINOPRIL 20 MG-HYDROCHLOROT* Take 1 tablet by mouth once d* OMEPRAZOLE 20 MG CAPSULE,BIANKA* Take 1 capsule by mouth daily* SIMVASTATIN 20 MG TABLET Take 1 tablet by mouth daily * BLOOD PRESSURE TEST KIT-LARGE* Check blood pressure weekly a* OXYBUTYNIN CHLORIDE ER 10 MG * TAKE 1 TABLET DAILY INFLIXIMAB 100 MG INTRAVENOUS* PREMEDICATE WITH TYLENOL 650* CHOLECALCIFEROL (VITAMIN D3) * Take 1 tablet by mouth once d* DAILY VITAMIN TABLET Take one(1) tablet daily. 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 Acquired hypothyroidism [E03.9] INVALID FOR* Priority: A Anemia, unspecified [D64.9] INVALID FOR* Priority: B DIVERTICULITIS OF COLON W/O BLEED [K57.32] INVALID FOR* Elevated blood pressure reading without diagnos*INVALID FOR*10/07/2011 Diarrhea [R19.7] INVALID FOR* Gastritis/duodenitis [K29.70, K29.90] INVALID FOR* Other and unspecified noninfectious gastroenter*INVALID FOR* Acute gastritis without mention of hemorrhage [*INVALID FOR* Unspecified disorder resulting from impaired re*INVALID FOR* Priority: A Esophageal reflux [K21.9] INVALID FOR* Priority: C Nonspecific colitis [K52.9] INVALID FOR* Priority: Moderate More... Anemia due to blood loss [D50.0] INVALID FOR* Routine gynecological examination [Z01.419] INVALID FOR* Priority: B Class: Chronic More... 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 Denies side effects to this medication INFLIXIMAB 100 MG INTRAVENOUS SOLUTI* 400 * 5 08/23/2017 Class: [facility] [place] [facility] Sig: PREMEDICATE WITH TYLENOL 650 MG PO AND BENADRYL 25MG PO 400 mg IV every 8 wks. Most recent weight on 01-02-2017 was 87.5 kg Medications Discontinued During This Encounter mesalamine (DELZICOL) 400 mg Delayed* 540 * 1 02/25/2017 08/23/2017 Route: ORAL Sig: Take 2 capsules by mouth three times daily. Denies side effects to this medication Disc: Reason for discontinue is not on file. inFLIXimab (REMICADE) 100 mg injecti* 400 * 3 02/22/2017 08/23/2017 Class: Print RX Sig: PREMEDICATE WITH TYLENOL 650 MG PO AND BENADRYL 25MG PO 400 mg IV every 8 wks. Most recent weight on 01-02-2017 was 87.5 kg Disc: Reason for discontinue is not on file. Encounter Status:Closed by LEÓN PARRISH MD on 08/23/17 PROGRESS Observed: 08/23/2017 Status: COMPLETED Source: [place] 1:22 PM [facility] [place] REPOSITORY O ID: [id number] Author: León Parrsih Service: (none) Author Type: Physician Type: Progress Notes Filed: 08/23/2017 7:55 PM Note Text: Follow Up Visit/ IBD BP 152/54 (BP Site: Left Arm, BP Position: Sitting, BP Cuff Size: Large Adult) Pulse 69 Temp 37 ?C (98.6 ?F) (Oral) Ht 167.6 cm (5' 6) Wt 91.2 kg (201 lb) SpO2 100% BMI 32.44 kg/m? Medications: Current Outpatient Prescriptions: cyanocobalamin, vitamin B-12, (VITAMIN B-12 ORAL) Take by mouth once daily. levothyroxine (SYNTHROID) 100 mcg tablet Take 1 tablet by mouth once daily. lisinopril-hydrochlorothiazide (PRINZIDE,ZESTORETIC) 20-12.5 mg per tablet Take 1 tablet by mouth once daily. omeprazole (PRILOSEC) 20 mg capsule Take 1 capsule by mouth daily before breakfast. 1/2 hr before meal. simvastatin (ZOCOR) 20 mg tablet Take 1 tablet by mouth daily at bedtime. mesalamine (DELZICOL) 400 mg Delayed Release Cap Take 2 capsules by mouth three times daily. Denies side effects to this medication Blood Pressure Test Kit-Large (QUICK RESPONSE BP MONITOR) kit Check blood pressure weekly and as needed. Essential hypertension--I10. inFLIXimab (REMICADE) 100 mg injection PREMEDICATE WITH TYLENOL 650 MG PO AND BENADRYL 25MG PO 400 mg IV every 8 wks. Most recent weight on 01-02-2017 was 87.5 kg oxybutynin ER (DITROPAN XL) 10 mg 24 hr tablet TAKE 1 TABLET DAILY inFLIXimab (REMICADE) 100 mg injection PREMEDICATE WITH TYLENOL 650 MG PO AND BENADRYL 25MG PO 500mg IV every 8 wks. Infusion can be done at [facility] [place] Cholecalciferol, Vitamin D3, 2,000 unit cap Take 1 tablet by mouth once daily. multivitamins(DAILY VITAMIN TAB) Take one(1) tablet daily. ACETAMINOPHEN 500 MG TAB Take one(1) tablet every four(4) to six(6) hours as needed for pain. azelaic acid(FINACEA 15 % TOPICAL GEL) am/hs OTC NUTRITIONAL SUPPLEMENT calcium qd No current facility-administered medications for this visit. Subjective: This 77 year old female with ulcerative colitis here for follow- up. Last seen 07/13/16 192 lbs. Changes and test results since last visit: Current symptoms are: 4-6 bowel movements per day which are formed. Significant rectal urgency, without incontinence. No rectal bleeding. No abdominal pain.Appetite is excellent.arthralgias and fatigueWeight/Height: BP 152/54 (BP Site: Left Arm, BP Position: Sitting, BP Cuff Size: Large Adult) Pulse 69 Temp 37 ?C (98.6 ?F) (Oral) Ht 167.6 cm (5' 6) Wt 91.2 kg (201 lb) SpO2 100% BMI 32.44 kg/m? , which is stable. No eye, skin or joint manifestations of IBD. Objective: Physical Examination General Appearance: Impression: UC- in remission with remicade. Plan: Need PCP for vaccination update, skin exam, pap smear. yearly surveillance colonoscopy refill Concepción Parrish MD PROGRESS Observed: 08/03/2017 Status: COMPLETED Source: [place] 9:52 AM [facility] REPOSITORY HNO ID: [id number] Author: Aleah Colin Service: (none) Author Type: Physician Type: Progress Notes Filed: 08/03/2017 10:12 AM Note Text: Infectious Disease E-Consult Response In response to your eConsult Infectious Disease request for Isaiah Shea regarding: hep B vaccination History of present illness provided through requesting provider documentation and current treatment plan was reviewed. Based on the patient history provided, my impression is as follows: 77F h/o UC on remicade s/p 4 doses of hepatitis B vaccine About 5 to 10 percent of patients do not respond or seroconvert to hep B vaccination As a result, it may be reasonable to repeat a three-dose schedule (thus giving a 5th and a 6th dose - to repeat a second vaccine series). would then retest two to three months after the third dose. Individuals who fail to respond after three additional doses of vaccine that have been appropriately administered are unlikely to benefit from further vaccination. Her nonresponse is likely due to her immunosuppression. However, these individuals may still mount an adequate immune response and recover from HBV infection if exposed in the future. If she is a dialysis or CKD patient, there is data on doubling the hep B vaccine dose to increase immunogenicity. Specialist appointment needs: No appointment necessary Thanks for your consult Aleah Colin MD August 03, 2017 CBC AND DIFFERENTIAL Collected: 08/01/2017 Status: F Source: [place] 10:54 AM [facility] REPOSITORY TYPE CODE TESTS RESULT OUT OF REFERENCE UNITS RANGE LAB WBC 3.70-11.00 k/uL WBC 5.62 LAB RBC 3.90-5.20 m/uL RBC 4.54 LAB HGB 11.5-15.5 g/dL Hemoglobin 13.3 LAB HCT 36.0-46.0 % Hematocrit 40.9 LAB MCV 80.0-100.0 fL MCV 90.1 LAB MCH 26.0-34.0 pG MCH 29.3 LAB MCHC 30.5-36.0 g/dL MCHC 32.5 LAB RDWCV 11.5-15.0 % RDW-CV 13.2 LAB PLTCT 150-400 k/uL Platelet Count 252 LAB MPV 9.0-12.7 fL MPV 12.1 LAB ANEUT % Neut% 45.9 LAB AANEUT 1.45-7.50 k/uL Abs Neut 2.58 LAB ALYMP % Lymph% 40.0 LAB AALYMP 1.00-4.00 k/uL Abs Lymph 2.25 LAB AMONO % [place]% 10.7 LAB AAMONO <0.87 k/uL Abs [place] 0.60 LAB AEOS % Eosin% 2.7 LAB AAEOS <0.46 k/uL Abs Eosin 0.15 LAB ABASO % Baso% 0.7 LAB AABASO <0.11 k/uL Abs Baso 0.04 LAB AUNRBC 0 /100 WBC NRBCs 0.0 LAB ABNRBC <0.01 k/uL Absolute nRBC <0.01 LAB DTYP DTYPE Auto Diff Performed By: #### CBCDIF, CMP #### [facility] [address] [place], [place] [address] COMP METABOLIC PANEL Collected: 08/01/2017 Status: F Source: [place] 10:54 AM [facility] REPOSITORY TYPE CODE TESTS RESULT OUT OF REFERENCE UNITS RANGE LAB TP 6.3-8.0 g/dL Protein, Total 7.7 LAB ALB 3.9-4.9 g/dL Albumin 4.4 LAB CA 8.5-10.2 mg/dL Calcium, High Total 10.3 LAB TBIL 0.2-1.3 mg/dL Bilirubin, Total 0.3 LAB ALKP 32-117 U/L Alkaline Phosphatase 51 LAB AST 13-35 U/L AST 20 LAB GLU 74-99 mg/dL Glucose 88 Result Comment: The [place] Diabetes Association (ADA) provides guidance for cutoff values for fasting glucose and random glucose. The ADA defines fasting as no caloric intake for at least 8 hours. Fas ting plasma glucose results between 100 to 125 mg/dL indicate increased risk for diabetes (prediabetes). Fasting plasma glucose results greater than or equal to 126 mg/dL meet the criteria for diagnosis of diabetes. In the absence of unequivocal hyperglycemia, results should be confirmed by repeat testing. In a patient with classic symptoms of hyperglycemia or hyperglycemic crisis, random plasma glucose results greater than or equal to 200 mg/dL meet the criteria for diagnosis of diabetes. Reference: Standards of Medical Care in Diabetes 2016, [place] Diabetes Association. Diabetes Care. 2016.39(Suppl 1). LAB BUN 7-21 mg/dL BUN High 22 LAB CRET 0.58-0.96 mg/dL Creatinine 0.85 LAB NA 136-144 mmol/L Low Sodium 135 LAB K 3.7-5.1 mmol/L Potassium 4.7 LAB CL 97-105 mmol/L Low Chloride 96 LAB CO2 22-30 mmol/L CO2 25 LAB AGAP 9-18 mmol/L Anion Gap 14 LAB ALT 7-38 U/L ALT 19 LAB GFRAA eGFR- Amer. >60 LAB GFRNAA . eGFR-All Other Races >60 Result Comment: eGFR (Estimated GFR) Units of measure: mL/min/1.73 meters squared eGFR is derived from the reexpressed MDRD Study equation using the following parameters: serum creatinine, age, gender and race. The creatinine assay has been calibrated to be traceable to IDMS. An eGFR <60 mL/min/1.73m2 for >3 months is consistent with chronic kidney disease. Refer to KDOQI guidelines for clinical interpretation. In patients with unstable renal function, e.g. those with acute kidney injury, the eGFR may not accurately reflect actual GFR. Performed By: #### CBCDIF, CMP #### [facility] [address] [address] HEPB SURFACE AB,QUAL Collected: 08/01/2017 Status: F Source: [place] 10:54 AM [facility] REPOSITORY TYPE CODE TESTS RESULT OUT OF REFERENCE UNITS RANGE LAB AHBSAG Negative HepB Surface Negative Ab,Qual Result Comment: NEGATIVE Performed By: #### AHBSAG #### [facility] [address] PROGRESS Observed: 06/01/2017 Status: COMPLETED Source: [place] 2:02 PM [facility] REPOSITORY HNO ID: [id number] Author: Susie Houston LPN Service: (none) Author Type: (none) Type: Progress Notes Filed: 06/01/2017 2:03 PM Note Text: Patient presents for Hepatitis B vaccine. Denies any problems at this time. Tolerated injection well. Susie Houston LPN HEPATITIS REMOTE PANEL Collected: 05/25/2017 Status: F Source: [place] 11:04 AM [facility] REPOSITORY TYPE CODE TESTS RESULT OUT OF REFERENCE UNITS RANGE LAB AHBCOT Negative Hep B Core Ab,Total Negative LAB AHCV Negative Hepatitis C Ab Negative IA LAB HBSAGR Negative HBsAg Negative LAB AHBSAG Negative HepB Surface Ab,Qual Negative Result Comment: NEGATIVE Performed By: #### HREMOP, INFTBG #### [facility] [address] [place], [place] [address] TB BY QUANTIFERON Collected: 05/25/2017 Status: F Source: [place] 11:04 AM [facility] REPOSITORY TYPE CODE TESTS RESULT OUT OF REFERENCE UNITS RANGE LAB TBGRES Negative TB Result Negative LAB TBGUI <0.35 IU/mL TB Antigen 0.01 Response LAB TBGMIT >0.49 IU/mL Mitogen >10.00 Response LAB TBGINT Interpretation No evidence of current or previous infection with Mycobacterium tuberculosis. Performed By: #### HREMOP, INFTBG #### [facility] [address] [place], [place] [address] CNCNPATED Observed: 05/20/2017 Status: COMPLETED Source: [place] 12:00 AM [facility] REPOSITORY Education (PHAH) ISAIAH SHEA ([id number]) 1940 Time Provider Department 05/20/17 RANDI (PHARMACIST)ADRI Reason for Visit: Chemotherapy Treatment [771] Visit Notes: >> Heather López (Pharmacist) TueMay 20, 2017 9:08 AM Status: Signed ONCOLOGY PATIENT FOLLOW UP NOTE Isaiah Shea 05/20/2017 TOPIC: test REASON: test CURRENT REGIMEN: test SUBJECTIVE: test RECOMMENDATION: test FOLLOW UP PLAN: test Time spent: test REFERRAL (RECOMMENDATION): test Yaa Alba During your visit today, we recorded the following information about you: Allergies As of Date: 05/20/2017 Noted Allergy Reaction NEOMYCIN 12/12/2007 Comments: Optic drops grittiness in eyes per opthomologist SULFASALAZINE 01/08/2011 2 - Rash Date Reviewed: 05/17/2017 Reviewed by: Antoinette (Bruno) BRUNO Cazares - Fully Assessed Prescriptions as of 05/20/2017 Sig: LEVOTHYROXINE 100 MCG TABLET Take 1 tablet by mouth once d* LISINOPRIL 20 MG-HYDROCHLOROT* Take 1 tablet by mouth once d* OMEPRAZOLE 20 MG CAPSULE,BIANKA* Take 1 capsule by mouth daily* SIMVASTATIN 20 MG TABLET Take 1 tablet by mouth daily * MESALAMINE 400 MG CAPSULE,DEL* Take 2 capsules by mouth thre* BLOOD PRESSURE TEST KIT-LARGE* Check blood pressure weekly a* INFLIXIMAB 100 MG INTRAVENOUS* PREMEDICATE WITH TYLENOL 650* OXYBUTYNIN CHLORIDE ER 10 MG * TAKE 1 TABLET DAILY INFLIXIMAB 100 MG INTRAVENOUS* PREMEDICATE WITH TYLENOL 650* CHOLECALCIFEROL (VITAMIN D3) * Take 1 tablet by mouth once d* DAILY VITAMIN TABLET Take one(1) tablet daily. ACETAMINOPHEN 500 MG TABLET Take one(1) tablet every four* FINACEA 15 % TOPICAL GEL am/hs OTC NUTRITIONAL SUPPLEMENT calcium qd Encounter Status:Closed by RANDI (PHARMACIST)HEATHER on 05/20/17 ALLERGIES ALLERGIES DATE TYPE / CODE NAME / CODE REACTION SEVERITY SOURCE 08/31/2017 Drug Sulfa (Sulfonamide Other OR [place] Allergy/416 Antibiotics)/[id number] Formerly [facility] [id number]([facility] 0491(RXNORM) [facility] ED CT) Repository 08/31/2017 Drug neomycin/[id number] Other OR [place] Allergy/416 (RXNORM) Formerly [facility] [id number]([facility] ED CT) Repository 01/08/2011 DRUG SULFASALAZINE RASH [facility]/[address] 406118(SN Repository ED CT) 12/12/2007 DRUG NEOMYCIN [facility]/[address] 961689(SN Repository ED CT) ENCOUNTERS ENCOUNTERS ADMIT/DISCHARGE ACCOUNT ADMITTING ENCOUNTER LOCATION SOURCE NUMBER CLASS 04/18/2018/04/20/19 [id number] Ambulatory [address] [place] Repository 04/10/2018/04/10/20 [id number] Ambulatory [place] [facility] Repository 03/23/2018 [id number] Ambulatory [facility] ing:PAVLAB Repository 02/21/2018/02/23/20 [id number] Ambulatory [address] Repository 12/27/2017/12/29/19 [id number] Ambulatory [address] Repository 11/10/2017/11/11/19 [id number] Ambulatory [address] Repository 11/01/2017/11/03/19 [id number] Ambulatory [address] Repository 10/25/2017/10/26/19 [id number] Ambulatory [address] Repository 10/17/2017/10/20/19 [id number] Ambulatory [address] Repository 10/13/2017/10/14/19 [id number] Ambulatory [address] Repository 10/13/2017 [id number] Ambulatory [facility] ing:OPBI Repository 09/09/2017 [id number] Ambulatory [facility] Repository 09/07/2017/11/04/19 [id number] Ambulatory [address] Repository 09/06/2017/09/08/19 [id number] Ambulatory [address] Repository 08/31/2017 [id number] Ambulatory [facility] ing:LABSPEC Repository 08/31/2017/09/02/19 [id number] Ambulatory [address] Repository 08/31/2017/09/01/19 [id number] Ambulatory BMS[facility]:[address] [place] [address] Repository 08/23/2017/08/24/19 [id number] Ambulatory [address] Repository 08/01/2017/08/02/19 [id number] Ambulatory [address] Repository 07/12/2017/07/14/19 [id number] Ambulatory [address] Repository 06/01/2017/06/02/19 [id number] Ambulatory [address] Repository 05/25/2017/05/25/19 [id number] Ambulatory [address] Repository 05/17/2017/05/18/19 [id number] Ambulatory [address] Repository PAYERS PAYERS ENCOUNTER GUARANTOR PAYER SUBSCRIBER SOURCE 03/23/2018 BRITNEY Hammond ISAIAH Paoster [id number] Insurance:GURDEEP TEIXEIRAOB: [facility] [place]: [id number] [id number] Repository [address]Dva: (330) Date:3536-58-34[phone] (HP) [id number] [place] [id number]: 03/23/2018 Secondary NOT GIVENUNK [place] Insurance:SELF PAY [facility]: Effective Repository Date:2018-03-23 10/13/2017 Britney Dumont Primary ISAIAH Whyte [id number] [place] Insurance:AETNA NUZUMDOB: [place] MarileearianeAlejandroicy Number: [email or web address] [id number]: [id number] Repository Date:9190-62-50[address] (HP) [id number] [place] [id number]: 10/13/2017 Secondary NOT GIVENUNK [place] Insurance:SELF PAY [facility] Number: Effective Repository Date:2017-08-31 09/09/2017 Britney Dumont Primary ISAIAHIla Whyte [id number] [place] Insurance:AETNA ADELEMDOB: [place] Alejandro Youngicy Number: [email or web address] [id number]: [id number] Repository Date:4254-24-88[address] (HP) [id number] [place] [id number]: 09/09/2017 Secondary NOT GIVENUNK [place] Insurance:SELF PAY [facility] Number: Effective Repository Date:2017-09-09 08/31/2017 Britney Dumont Primary ISAIAH [place] [id number] [place] Insurance:AETNA ADELEMDOB: [place] Marileeariane BARBARAPolicy Number: [email or web address] [id number]: [id number] Repository Date:0762-54-80[address] ([address]) [id number] [place] [id number]: 08/31/2017 Secondary NOT GIVENUNK [place] Insurance:SELF PAY [facility] Number: Effective Repository Date:2017-08-31 08/31/2017 Britney Dumont Primary [facility] Pato [id number] [facility] Insurance:AETNA LARRYZUMDOB: [place] Sherrie Young Number: [email or web address] [id number]: [id number] Repository Date:1540-66-04NZ BOX (ZL) [id number] J [place] [id number]: 08/31/2017 [place] [facility] Number: Effective Repository Date:2017-08-31
== END ==
PROVIDERS: Family Provider Family Medicine; PCP Family Medicine; Referring Provider Obstetrics & Gynecology; Visit Provider Obstetrics & Gynecology
DX: R23.2 Flushing (principal)
CPT/HCPCS: 36415; 82670; 83001; 84402

== ENCOUNTER → 2019-03-15 06:57 | Outpatient (CLI) | payer MEDICARE, SELFPAY ==
[2018-09-27 09:28] VITALS: BMI 32.8
--- NOTE | 2019-03-15 07:01 | BI_ITS ---
MAMMOGRAPHY - BILATERAL SCREENING REASON FOR EXAM: Female, 78 years old. Routine annual screening examination. PERTINENT HISTORY: Non-contributory. TECHNIQUE: Digital bilateral breast kiah (3D mammographic acquisition) in the CC and MLO projections. 2-D mediolateral oblique (MLO) and craniocaudad (CC) views of both breasts were obtained. CAD: Full Field Digital Mammography with Computer Added Detection was performed. COMPARISON: Comparison is made with prior study dated October 13, 2017. FINDINGS: Breast Composition: The breasts are almost entirely fatty. There are no dominant masses or suspicious calcifications. Stable benign-appearing bilateral axillary lymph nodes. No other significant abnormalities are identified. There has been no significant change since the prior study. BI/SCREEN MAMM (CAD) W/KIAH BILAT IMPRESSION: Stable bilateral screening mammogram. Yearly follow-up mammogram recommended. (A) ASSESSMENT CATEGORY: BIRADS Category 2: Benign. A letter regarding these results will be sent to the patient by the facility within 30 days. Approximately 10% of breast cancers are not detected by mammography. A normal mammogram should not delay biopsy of a clinically suspicious abnormality. [id number] Electronically Signed: Priyank Lindsay, at 9:37 EST , Service support ,
== END ==
PROVIDERS: Family Provider Family Medicine; PCP Family Medicine; Referring Provider Obstetrics & Gynecology; Visit Provider Obstetrics & Gynecology
DX: Z12.31 Encounter for screening mammogram for malignant neoplasm of breast (principal)
CPT/HCPCS: 77063; 77067

== ENCOUNTER → 2019-11-22 | Outpatient (CLI) | payer MEDICARE, SELFPAY ==
[2019-11-22 16:22] VITALS: BMI 32.8
== END | disposition home or self-care (01) ==
LOC: LABSPEC 16:42
PROVIDERS: PCP Family Medicine; Referring Provider Obstetrics & Gynecology; Visit Provider Obstetrics & Gynecology
DX: N76.4 Abscess of vulva (principal)
CPT/HCPCS: 87070; 87205

== ENCOUNTER → 2020-02-13 | Outpatient (CLI) | payer MEDICARE, SELFPAY ==
[2020-02-13 10:04] VITALS: BMI 34.0
[2020-02-20 13:25] LABS: HPV APTIMA, High Risk Negative (Negative)
== END | disposition home or self-care (01) ==
LOC: LABSPEC 16:18
PROVIDERS: PCP Family Medicine; Referring Provider Obstetrics & Gynecology; Visit Provider Obstetrics & Gynecology
DX: Z12.4 Encounter for screening for malignant neoplasm of cervix (principal)
CPT/HCPCS: 87624; 88175; G0145

== ENCOUNTER → 2020-08-18 | Outpatient (CLI) | payer MEDICARE, SELFPAY ==
[2020-02-13 10:04] VITALS: BMI 34.0
== END | disposition home or self-care (01) ==
PROVIDERS: PCP Family Medicine; Referring Provider Otolaryngology Otolaryngology/Facial Plastic Surgery; Visit Provider Otolaryngology Otolaryngology/Facial Plastic Surgery
DX: J02.9 Acute pharyngitis, unspecified (principal)
CPT/HCPCS: 87070

== ENCOUNTER → 2023-02-22 | Outpatient (CLI) | payer MEDICARE, SELFPAY | END | disposition home or self-care (01) | PROVIDERS: PCP Family Medicine; Referring Provider Obstetrics & Gynecology; Visit Provider Obstetrics & Gynecology | DX: N76.4 Abscess of vulva (principal) | CPT/HCPCS: 87070; 87077; 87186; 87205 ==

== ENCOUNTER → 2023-08-22 | Outpatient (CLI) | payer MEDICARE, SELFPAY ==
--- NOTE | 2023-08-22 13:25 | US_ITS ---
PROCEDURE: RENAL ULTRASOUND - COMPLETE REASON FOR EXAM: Female, 83 years old. Recurrent UTI TECHNIQUE: Ultrasound evaluation of the bilateral kidneys was performed with real-time ultrasonography and static grayscale imaging. COMPARISON: None. FINDINGS: RIGHT KIDNEY: Normal location of the right kidney which is normal in size. The right kidney measures 10.2 x 4.8 x 5.3 cm. There is a normal cortex of the right kidney. The renal cortex measures 1 cm. There is a cyst in the midpole of the right kidney measuring about 1.7 cm appears to be simple and no further follow-up exam is needed. There are no right renal calculi. There is no right hydronephrosis. DISTAL RIGHT URETER: There is non-visualization of the distal right ureter. There is no demonstrated right ureterovesical junction calculus. There is a visualized right ureteral jet. LEFT KIDNEY: Normal location of the left kidney which is normal in size. The left kidney measures 11.1 x 4.4 x 5.4 cm. There is a normal cortex of the left kidney. The renal cortex measures 1.3 cm. There is no left renal mass or cyst. There are no left renal calculi. There is no left hydronephrosis. DISTAL LEFT URETER: There is non-visualization of the distal left ureter. There is no demonstrated left ureterovesical junction calculus. There is no demonstrated left ureteral jet. BLADDER: The urinary bladder is not well distended has a volume of 21 ml. US/Kidney and Bladder IMPRESSION: 1. No evidence of hydronephrosis. 2. Right renal cyst. Electronically Signed: Krystian Oliveira MD at 15:54 EDT ,
== END | disposition home or self-care (01) ==
LOC: US 13:21
PROVIDERS: PCP Family Medicine; Referring Provider Urology; Visit Provider Urology
DX: N39.0 Urinary tract infection, site not specified (principal)
CPT/HCPCS: 76770

== ENCOUNTER → 2023-08-26 | Outpatient (CLI) | payer MEDICARE, SELFPAY | END | disposition home or self-care (01) | LOC: LABSPEC 16:56 | PROVIDERS: PCP Family Medicine; Referring Provider Obstetrics & Gynecology; Visit Provider Obstetrics & Gynecology | DX: Z12.4 Encounter for screening for malignant neoplasm of cervix (principal) | CPT/HCPCS: 88175; G0145 ==

== ENCOUNTER → 2023-09-01 | Outpatient (CLI) | payer MEDICARE, SELFPAY ==
--- NOTE | 2023-09-01 09:41 | BI_ITS ---
MAMMOGRAPHY - BILATERAL SCREENING 3-D TOMOSYNTHESIS REASON FOR EXAM: Female, 83 years old. screening mammogram PERTINENT HISTORY: No significant family history. TECHNIQUE: 2-D mammograms and 3-D Tomosynthesis of the breast (s) were performed. CAD was performed. COMPARISON: 03/15/2019 FINDINGS: The breast composition is composed of scattered fibroglandular density. Scattered benign calcifications are seen. No dense spiculated masses or suspicious microcalcifications are identified. No architectural distortion is identified. There is no skin thickening or retraction. There has been no significant change since the prior study. Benign rodlike calcifications in the lower inner quadrant of the left breast. BI/SCRN MAMM (CAD)W/KIAH BILAT IMPRESSION: No mammographic signs of malignancy. Routine yearly mammograms recommended. ASSESSMENT CATEGORY: BIRADS Category 2: Benign. A letter regarding these results will be sent to the patient by the facility within 30 days. FOLLOW UP RECOMMENDATION: Yearly follow up mammogram recommended. (A) Approximately 10% of breast cancers are not detected by mammography. A normal mammogram should not delay biopsy of a clinically suspicious abnormality. Electronically Signed: Scott Pro MD at 17:24 EDT ,
== END | disposition home or self-care (01) ==
LOC: OPBI 09:41
PROVIDERS: PCP Family Medicine; Referring Provider Obstetrics & Gynecology; Visit Provider Obstetrics & Gynecology
DX: Z12.31 Encounter for screening mammogram for malignant neoplasm of breast (principal)
CPT/HCPCS: 77063; 77067

== ENCOUNTER → 2024-08-27 | Outpatient (CLI) | payer MEDICARE, SELFPAY | END | disposition home or self-care (01) | PROVIDERS: PCP Family Medicine; Referring Provider Obstetrics & Gynecology; Visit Provider Obstetrics & Gynecology | DX: L68.0 Hirsutism (principal); Z91.89 Other specified personal risk factors, not elsewhere classified; Z12.4 Encounter for screening for malignant neoplasm of cervix | CPT/HCPCS: 36415; 84402; 84403; 88175; G0145 ==

== ENCOUNTER → 2024-09-05 | Outpatient (CLI) | payer MEDICARE, SELFPAY ==
--- NOTE | 2024-09-05 09:10 | BI_ITS ---
EXAM: SCRN MAMM (CAD)W/KIAH BILAT 09/05/2024 CLINICAL HISTORY: F, Age 84 y/o , SCREENING TECHNIQUE: Bilateral screening digital breast tomosynthesis with 2D and 3D images. Computer aided detection. COMPARISON: Prior exam(s) dated 09/01/2023, 03/15/2019. FINDINGS: TISSUE DENSITY: The breast tissue is composed of scattered area of fibroglandular density.. Bilateral Breast Mammographic Findings: No significant masses, calcifications or other abnormalities are identified. BI/SCRN MAMM (CAD)W/KIAH BILAT IMPRESSION: Right Breast: BIRADS 1 NEGATIVE. Left Breast: BIRADS 1 NEGATIVE. OVERALL FINAL ASSESSMENT: BIRADS 1 NEGATIVE. RECOMMENDATION: Routine annual follow-up in 1 Year A letter with findings and recommendations will be mailed to the patient. Reading Location: [id number]
== END | disposition home or self-care (01) ==
LOC: OPBI 09:08
PROVIDERS: PCP Family Medicine; Referring Provider Obstetrics & Gynecology; Visit Provider Obstetrics & Gynecology
DX: Z12.31 Encounter for screening mammogram for malignant neoplasm of breast (principal)
CPT/HCPCS: 77063; 77067